=== PATIENT | female | born 1970 | race Caucasian/White ===

== ENCOUNTER 2017-12-20 10:27 | Inpatient (IN) ==
[2017-12-20] MEDS ORDERED: Sod Chloride 0.9% Inj 1,000 ML IV.SIG ONE (10:45)
[2017-12-20] MEDS ORDERED: Morphine Inj 4 MG/ML Vial IV.PUSH ONE (10:53)
--- NOTE | 2017-12-20 10:57 | ED ---
HPI General Chief Complaint: Abdominal Pain Stated Complaint: Stomach pain x 5 days Time Seen by Provider: 12/20/17 10:53 Source: patient Mode of arrival: ambulatory Limitations: no limitations History of Present Illness HPI narrative: 47-year-old female patient with recent history of diverticulitis diagnosed last week, has been on Cipro and Flagyl, presents to the ER today sent and by GI, Dr. Louis, who she saw this morning because of increased 2 days of abdominal pains. She has been nauseous, states that now she is having severe 10 out of 10 cramping which worsens with movement talking, and states that she is having watery dark diarrhea. She denies any recent fevers or other issues. I have talked to her GI physician and was asked to do further abdominal workup including CAT scan due to concerns about perforation. Related Data Home Medications Medication Instructions Recorded Confirmed Effexor XR 150 mg PO DAILY 12/20/17 12/20/17 ciprofloxacin HCl [Cipro] mg PO 12/20/17 metoprolol tartrate 25 mg PO BID 12/20/17 12/20/17 metronidazole [Flagyl] mg PO 12/20/17 omeprazole 20 mg PO DAILY 12/20/17 12/20/17 Allergies Allergy/AdvReac Type Severity Reaction Status Date / Time ondansetron [From Zofran] Allergy Hives Verified 12/20/17 10:53 topiramate AdvReac Severe MEMORY Verified 12/20/17 10:53 ISSUES trazodone AdvReac Intermediate Nausea/Vomi Verified 12/20/17 10:53 ting oxycodone AdvReac Mild ITCH Verified 12/20/17 11:18 Review of Systems Except as stated in HPI: all other systems reviewed are negative PMFSH History History Provided By: Patient Medical History Medical History Diverticulitis (Acute) SVT (supraventricular tachycardia) (Acute) Surgical History Surgical History H/O oophorectomy (Acute) History of cholecystectomy (Acute) History of prior ablation treatment (Acute) Social History Social History Substance History: No History of Abuse Second Hand Smoke Exposure: No Smoking Status: Never smoker How Often Do You Have a Drink Containing Alcohol: 2 to 4 times a month Recent Travel in [facility] within the Last 8 Weeks: No Recent Out of Country Travel within the Last 8 Weeks: No Exam Narrative Exam Narrative: GENERAL: Well-developed middle-age female patient currently in moderate distress. Awake and oriented 3. SKIN: Focused skin assessment warm/dry. HEAD: Atraumatic. Normocephalic. EYES: Pupils equal and round. No scleral icterus. No injection or drainage. ENT: No nasal bleeding or discharge. Mucous membranes pink and moist. NECK: Trachea midline. No JVD. CARDIOVASCULAR: Regular rate and rhythm. No murmur appreciated. RESPIRATORY: No accessory muscle use. Clear to auscultation. Breath sounds equal bilaterally. GASTROINTESTINAL: Abdomen diffuse tender, more pronounced in the left lower quadrant, guarding with no reboundly, nondistended. Hepatic and splenic margins not palpable. MUSCULOSKELETAL: No obvious deformities. No clubbing. No cyanosis. No edema. NEUROLOGICAL: Awake and alert. No obvious cranial nerve deficits. Motor grossly within normal limits. Normal speech. PSYCHIATRIC: Appropriate mood and affect; insight and judgment normal. Course Hospital Course: Patient's lab work was fairly unremarkable and CAT scan did not show any signs of acute processes other than the ongoing diverticulitis. There are no signs of perforation or any signs of abscess formation. Case was discussed with , who states that considering that the patient is not doing well in outpatient therapy, he would recommend that the patient receive IV antibiotics and inpatient evaluation and therapy with GI consult and medical admission. Case was then discussed with Dr. Ruvalcaba for admission. In addition, Dr. Ruvalcaba would like me to put her in for Zosyn and clindamycin. Initial Documented Vital Signs Temperature 98.6 F 12/20/17 10:54 Pulse Rate 120 H 12/20/17 10:54 Respiratory Rate 18 12/20/17 10:54 Blood Pressure 167/80 H 12/20/17 10:54 Pulse Oximetry 99 12/20/17 10:54 Last Documented Vital Signs Temperature 98.6 F 12/20/17 10:54 Pulse Rate 88 12/20/17 11:45 Respiratory Rate 20 12/20/17 11:45 Blood Pressure 156/82 H 12/20/17 11:45 Pulse Oximetry 96 12/20/17 11:45 Medical Decision Making Differential Diagnosis Differential Diagnosis: Worsening diverticulitis versus perforation versus diverticular abscess versus other acute intra-abdominal processes Lab Data Result diagrams: 12/20/17 11:00 12/20/17 11:00 Lab Results 0712/20/17 12/20/17 Range/Units 11:00 11:00 11:05 CBC w Diff Auto diff final WBC 11.2 H (4.0-11.0) th/mm3 RBC 5.32 H (4.00-5.30) mil/mm3 Hgb 13.6 (11.6-15.3) gm/dL Hct 42.5 (35.0-46.0) % MCV 79.9 L (80.0-100.0) fL MCH 25.6 L (27.0-34.0) pg MCHC 32.0 (32.0-36.0) % RDW 15.4 (11.6-17.2) % Plt Count 435 (150-450) th/mm3 MPV 7.9 (7.0-11.0) fL Neut % (Auto) 72.3 H (16.0-70.0) % Lymph % (Auto) 20.3 (9.0-44.0) % [place] % (Auto) 4.5 (0.0-8.0) % Eos % (Auto) 1.9 (0.0-4.0) % Baso % (Auto) 1.0 (0.0-2.0) % Neut # (Auto) 8.1 H (1.8-7.7) th/mm3 Lymph # (Auto) 2.3 (1.0-4.8) th/mm3 [place] # (Auto) 0.5 (0.0-0.9) th/mm3 Eos # (Auto) 0.2 (0.0-0.4) th/mm3 Baso # (Auto) 0.1 (0.0-0.2) th/mm3 WBC Differential . Differential Comment . Sodium 138 (136-145) meq/L Potassium 3.7 (3.5-5.1) meq/L Chloride 103 (98-107) meq/L Carbon Dioxide 25.7 (21.0-32.0) meq/L Anion Gap 9 (5-15) meq/L BUN 10 (7-18) mg/dL Creatinine 0.95 (0.50-1.00) mg/dL Estimated GFR 63 L (>89) mL/min Random Glucose 111 H (74-106) mg/dL Calcium 9.2 (8.5-10.1) mg/dL Total Bilirubin 0.3 (0.2-1.0) mg/dL AST 24 (15-37) U/L ALT 36 (10-53) U/L Alkaline Phosphatase 113 (45-117) U/L Total Protein 8.7 H (6.4-8.2) g/dL Albumin 3.8 (3.4-5.0) g/dL Lipase 165 (73-393) U/L Ur Collection Type Clean catch Urine Color Yellow (Yellw/Straw) Urine Clarity Clear (Clear) Urine pH 6.5 (5.0-8.5) Ur Specific [place] Greater/equal 1.030 (1.002-1.035) Urine Protein 30 H (Neg-Trace) mg/dL Urine Glucose (UA) Negative (Negative) mg/dL Urine Ketones Trace H (Negative) mg/dL Urine Occult Blood Negative (Negative) Urine Nitrate Negative (Negative) Urine Bilirubin Negative (Negative) Urine Urobilinogen 0.2 (Less than 2) mg/dL Ur Leukocyte Esterase Trace H (Negative) Urine RBC 0-3 (0-3) /hpf Urine WBC 9-20 H (0-5) /hpf Ur Squamous Epith Cells Greater than 10 H (0-5) /hpf Urine Bacteria Many H (None) /hpf Micro UA Comment Culture indicated Urine Culture Comments Culture indicated Imaging Data Radiologist's impression: ITS Impressions Abdomen/Pelvis CT 12/20/17 10:45 CONCLUSION: 1. Discharge Plan Discharge Disposition Patient Disposition: 30 Still Patient Discharge Condition Condition: Stable Discharge Details Anticipated Discharge Date: 12/20/17 Diagnosis: Diverticulitis Physicians Team ED Provider: Chin Gama Primary Care Provider: El Lion Rxs /Orders / Referrals /Forms Prescriptions: No Action metronidazole [Flagyl] 250 mg Tablet PO RF: 0 ciprofloxacin HCl [Cipro] 250 mg Tablet PO RF: 0 metoprolol tartrate 50 mg Tablet 25 mg PO BID RF: 0 omeprazole 20 mg Capsule,Delayed Release(Dr/Ec) 20 mg PO DAILY RF: 0 Effexor XR 150 mg PO DAILY RF: 0 Discharge Interventions Interventions: Vital Signs Last Done: 12/20/17 11:45 Status ED Status: With Doctor
[2017-12-20 11:03] LABS: Baso # (Auto) 0.1 th/mm3 (0.0-0.2); Eos # (Auto) 0.2 th/mm3 (0.0-0.4); Eos % (Auto) 1.9 % (0.0-4.0); Hematocrit 42.5 % (35.0-46.0); Hemoglobin 13.6 gm/dL (11.6-15.3); Lymph # (Auto) 2.3 th/mm3 (1.0-4.8); Lymph % (Auto) 20.3 % (9.0-44.0); Mean Corpuscular Hemoglobin 25.6 pg (27.0-34.0); Mean Corpuscular Volume 79.9 fL (80.0-100.0); Mean Platelet Volume 7.9 fL (7.0-11.0); Mono # (Auto) 0.5 th/mm3 (0.0-0.9); Mono % (Auto) 4.5 % (0.0-8.0); Neut # (Auto) 8.1 th/mm3 (1.8-7.7); Neut % (Auto) 72.3 % (16.0-70.0); Platelet Count 435 th/mm3 (150-450); Red Blood Count 5.32 mil/mm3 (4.00-5.30); Red Cell Distribution Width 15.4 % (11.6-17.2); White Blood Count 11.2 th/mm3 (4.0-11.0)
[2017-12-20 11:12] LABS: Clarity,Urine Clear (Clear); Color,Urine Yellow (Yellw/Straw); Glucose,Urine (UA) Negative (Negative); Leukocyte Esterase,Urine Trace (Negative); Nitrite,Urine Negative (Negative); PH,Urine 6.5 (5.0-8.5); Specific Gravity,Urine Greater/Equal 1.030 (1.002-1.035); Urobilinogen,Urine 0.2 mg/dL (Less than 2)
[2017-12-20 11:12] LABS: Chloride 103 meq/L (98-107); Potassium 3.7 meq/L (3.5-5.1); Sodium 138 meq/L (136-145)
[2017-12-20 11:15] LABS: Bilirubin,Urine Negative (Negative)
[2017-12-20 11:19] LABS: Albumin 3.8 g/dL (3.4-5.0); Anion Gap 9 meq/L (5-15); Blood Urea Nitrogen 10 mg/dL (7-18); Calcium 9.2 mg/dL (8.5-10.1); Carbon Dioxide 25.7 meq/L (21.0-32.0); Glucose,Random 111 mg/dL (74-106); Lipase 165 U/L (73-393)
[2017-12-20 11:21] LABS: Alanine Aminotransferase 36 U/L (10-53); Aspartate Aminotransferase 24 U/L (15-37)
[2017-12-20 11:22] LABS: RBC,Urine 0-3 /hpf (0-3); Squamous Epithelial Cell,Urine Greater than 10 /hpf (0-5)
[2017-12-20 11:22] LABS: Glomerular Filtration Rate 63 mL/min (>89)
[2017-12-20 11:23] LABS: Bacteria,Urine Many /hpf
[2017-12-20 11:23] LABS: Total Protein 8.7 g/dL (6.4-8.2)
[2017-12-20 11:24] LABS: Alkaline Phosphatase 113 U/L (45-117)
--- NOTE | 2017-12-20 12:56 | CT ---
EXAM DATE: 12/20/2017 12:53 PM EDT AGE/SEX: 47 years / Female INDICATIONS: Left lower quadrant abdominal pain. CLINICAL DATA: This is the patient's initial encounter. Patient reports that signs and symptoms have been present for 4 - 6 days and indicates a pain score of 10/10. MEDICAL/SURGICAL HISTORY: Diverticulitis. Hysterectomy. Cholecystectomy. ORAL CONTRAST: No oral contrast ingested. RADIATION DOSE: 16.92 CTDI (mGy) COMPARISON: No prior exams available for comparison. TECHNIQUE: Multiple contiguous axial images were obtained through the abdomen and pelvis following b olus infusion of 95 ml Omnipaque 350 (iohexol) nonionic water-soluble contrast as a single exam dos e. No oral contrast ingested. Using automated exposure control and adjustment of the mA and/or kV ac cording to patient size, radiation dose was kept as low as reasonably achievable to obtain optimal di agnostic quality images. DICOM format image data is available electronically for review and comparis on. FINDINGS: No CONCLUSION: 1. Electronically signed by: Sarath Miranda MD 12/20/2017 12:55 PM EDT
[2017-12-20] MEDS ORDERED: Dicyclomine Inj 20 MG/2 ML Ampul IM ONE (13:07)
[2017-12-20] MEDS ORDERED: Clindamycin 600 mg/NS Premix 600 MG/50 ML PIGGYBACK IV.SIG ONE (13:59)
[2017-12-20] MEDS ORDERED: Piperacil/Tazo 3.375 GM Premix 50 ML IV.SIG ONE (13:59)
[2017-12-20] MEDS: Piperacil/Tazo 3.375 GM Premix 50 ML IV.SIG SCH ×2 (14:13→21:01)
[2017-12-20] MEDS: Sod Chloride 0.9% Inj 1,000 ML IV.CONT SCH (14:23)
--- NOTE | 2017-12-20 14:43 | P.HP ---
History of Present Illness Service: [facility] Adult medicine Primary Care Physician: El Lion Chief Complaint: abd pain, diverticulitis- sent by GI provider History of Present Illness: 47-year-old female patient with recent history of diverticulitis diagnosed last week in ER in [facility], has been on Cipro and Flagyl for 6 days, presents to the ER today sent and by GI, Dr. Louis, who she saw this morning in his office because of increased abdominal pains over last 2-3 days despite c/w meds. She has been nauseous, states that now she is having severe 10 out of 10 cramping which worsens with movement talking, and states that she is having watery dark diarrhea for the last day. She denies any recent fevers or other issues. She reports that abd pain is primarily in LLQ and is crampy in nature. No hematemesis. NO CP or SOB. ER eval reveals uncomfortable female c/o abd pain. WBC slightly elevated around 11K. CT scan reveals diverticulitis in the deep central pelvis and mid to distal sigmoid colon without obstruction or definite abscess. Trace free fluid. No free air.Large left-sided hiatal hernia increased in size from 2011 comparison. Associated left basilar atelectasis. She has been started on IVF, IV abx, pain meds. She reports that morphine does dull the pain and make it bearable, but still having pain. - Diagnosis (1) Diverticulitis (2) GERD (gastroesophageal reflux disease) (3) Major depression (4) Anxiety (5) Migraine (6) SVT (supraventricular tachycardia) Inpatient Certification: I certify that the inpatient services were ordered in accordance with Medicare regulations governing the order. This includes certification that hospital inpatient services are reasonable and necessary and in the case of services not specified as inpatient-only under 42 CFR 419.22(n), that they are appropriately provided as inpatient services in accordance to with the 2-midnight benchmark under 43 CFR 412.3(e) Estimated Total Length of Stay (Days): 3 Plans for Post Hospital Care: Home Review of Systems Constitutional: Reports fatigue, Reports malaise, Reports weight loss Cardiovascular: Reports fast heart rate, Denies chest pain, Denies chest pain at rest, Denies chest pain with activity, Denies excessive sweating, Denies fainting, Denies foot swelling, Denies generalized swelling, Denies irregular heart rhythm, Denies leg pain with activity, Denies leg sores, Denies leg swelling, Denies lightheadedness, Denies radiating jaw, neck or arm pain, Denies rapid, pounding, or irregular heartbeat, Denies shortness of breath, Denies shortness of breath with activity, Denies shortness of breath when lying down, Denies shortness of breath causing sudden awakening, Denies slow heart rate, Denies other Respiratory: Denies change in phlegm color, Denies chest congestion, Denies cough, Denies coughing up blood, Denies excessive phlegm production, Denies pain on inspiration, Denies pain with cough, Denies shortness of breath, Denies shortness of breath with activity, Denies snoring, Denies stridor, Denies wheezing, Denies other Gastrointestinal: Reports abdominal pain, Reports bloating, Reports change in stools, Reports loose stools, Reports nausea Skin/Breast: Denies acne, Denies bleeding lesions, Denies boil, Denies breast swelling, Denies breast skin changes, Denies breast pain, Denies breast lump, Denies change in breast shape, Denies change in hair, Denies change in skin color, Denies changing lesions, Denies dry skin, Denies excessive hair growth, Denies hair loss, Denies itching, Denies lesions, Denies nail changes, Denies new lesions, Denies nipple discharge, Denies non-healing lesions, Denies redness , Denies sensitivity to light, Denies rash, Denies skin pain, Denies skin ulcer , Denies sores, Denies stretch inman, Denies unusual bruising, Denies wounds, Denies yellowing of the skin, Denies other Neurologic: Denies abnormal hearing, Denies abnormal movements, Denies abnormal speech, Denies abnormal walking, Denies behavioral changes, Denies burning sensations, Denies confusion, Denies dizziness, Denies fainting, Denies frequent falls, Denies headache(s), Denies lack of coordination, Denies localized weakness, Denies loss of vision, Denies memory loss, Denies numbness, Denies other visual disturbances, Denies radiating pain, Denies restless legs, Denies convulsions, Denies seizure-like activity, Denies sensory deficit, Denies tingling, Denies tingling/numbness/burning sensations, Denies tremor(s), Denies unsteadiness, Denies weakness, Denies other Psychiatric: Reports anxiety Hematologic/Lymphatic: Denies easy bleeding, Denies easy bruising, Denies enlarged lymph nodes, Denies other Allergic/Immunologic: Reports GI upset with certain foods PMFSH - History History Provided By: Patient - Medical History Medical History: Medical History (Last Updated 12/20/17 @ 14:36 by Ronn Ruvalcaba MD, PhD) Diverticulitis History of hysterectomy SVT (supraventricular tachycardia) - Surgical History Surgical History: Surgical History (Last Updated 12/20/17 @ 14:36 by Ronn Ruvalcaba MD, PhD) H/O cardiac radiofrequency ablation H/O oophorectomy History of cholecystectomy History of nasal surgery History of prior ablation treatment History of tonsillectomy and adenoidectomy Hx of abdominoplasty - Family History Family History: Family History (Last Updated 12/20/17 @ 14:37 by Ronn Ruvalcaba MD, PhD) Father Family history of hypertension Mother Depression Family history of hypertension - Tobacco History Second Hand Smoke Exposure: No Tobacco Use In Past 30 Days: No Smoking Status: Never smoker - Alcohol History How Often Do You Have a Drink Containing Alcohol: 2 to 4 times a month - Substance Use History Substance History: No History of Abuse - Travel History Recent Travel in the [place] Within the Last 8 Weeks: No Recent Travel Out of the Country Within the Last 8 Weeks: No - Immunization History Tetanus Immunization: >5 Years Hx Influenza Vaccine This Season: No Medications and Allergies Active Medications: Active Medications Sodium Chloride (Ns Inj) 1,000 mls @ 100 mls/hr IV.CONT .Q10H [facility] Last Admin: 12/20/17 14:23 Dose: 100 mls/hr Piperacillin/Tazobactam/Dextrose (Zosyn 3.375 Gm Premix) 50 mls @ 100 mls/hr IV.SIG Q6H [facility] Last Admin: 12/20/17 14:13 Dose: Not Given Morphine Sulfate (Morphine Inj) 4 mg IV.PUSH Q4H PRN PRN Reason: PAIN SCALE 6 TO 10 Prochlorperazine Edisylate (Compazine Inj) 5 mg IV.PUSH Q6H PRN PRN Reason: NAUSEA OR VOMITING Sodium Chloride (Ns Flush) 2 ml IV.FLUSH PRN PRN PRN Reason: FLUSH AFTER USING IV ACCESS Allergies Allergy/AdvReac Type Severity Reaction Status Date / Time ondansetron [From Zofran] Allergy Hives Verified 12/20/17 10:53 topiramate AdvReac Severe MEMORY Verified 12/20/17 10:53 ISSUES trazodone AdvReac Intermediate Nausea/Vomi Verified 12/20/17 10:53 ting oxycodone AdvReac Mild ITCH Verified 12/20/17 11:18 Home Medications Medication Instructions Recorded Confirmed Type Effexor XR 150 mg PO DAILY 12/20/17 12/20/17 History ciprofloxacin HCl [Cipro] mg PO 12/20/17 History metoprolol tartrate 25 mg PO BID 12/20/17 12/20/17 History metronidazole [Flagyl] mg PO 12/20/17 History omeprazole 20 mg PO BID 12/20/17 12/20/17 History Exam Vital signs: Vital Signs 12/20/17 10:54 12/20/17 11:15 12/20/17 11:45 Temperature 98.6 F Pulse Rate 120 H 88 Respiratory Rate 18 20 Blood Pressure 167/80 H 156/82 H Pulse Oximetry 99 97 96 12/20/17 14:07 Temperature 97.9 F Pulse Rate 78 Respiratory Rate 18 Blood Pressure 172/92 H Pulse Oximetry 100 Intake & Output 12/19/17 12/20/17 12/20/17 18:59 06:59 18:59 Intake Total 1000 / 1000 Balance 1000 / 1000 Weight 103.5 kg Intake: IV 1000 / 1000 NS Inj 1,000 ML @ Wide Open IV. 1000 / 1000 SIG BOLUS ONE Rx#:[id number] - Constitutional mild distress, obese, cooperative - Routine HEENT Exam Head: Present: normocephalic, atraumatic Eye: Present: EOMI, PERRL ENT: Present: mucous membranes moist, nares patent - Routine Neck Exam Present: supple, full ROM - Routine Respiratory Exam Present: CTA bilaterally - Routine Cardiovascular Exam Present: RRR - Routine Abdominal Exam Present: tenderness, distended, guarding - Routine Extremities Exam Present: full ROM, pulses intact, normal capillary refill - Routine Skin Exam Present: intact - Routine Neurological Exam Present: alert, oriented X3, CN II-XII intact, moving all extremities, normal tone, normal speech Results - Labs CBC & Chem 7: 12/20/17 11:00 12/20/17 11:00 Labs: Laboratory Results - last 24 hr 12/20/17 12/20/17 12/20/17 11:00 11:00 11:05 CBC w Diff Auto diff final WBC 11.2 H RBC 5.32 H Hgb 13.6 Hct 42.5 MCV 79.9 L MCH 25.6 L MCHC 32.0 RDW 15.4 Plt Count 435 MPV 7.9 Neut % (Auto) 72.3 H Lymph % (Auto) 20.3 [place] % (Auto) 4.5 Eos % (Auto) 1.9 Baso % (Auto) 1.0 Neut # (Auto) 8.1 H Lymph # (Auto) 2.3 [place] # (Auto) 0.5 Eos # (Auto) 0.2 Baso # (Auto) 0.1 WBC Differential . Differential Comment . Sodium 138 Potassium 3.7 Chloride 103 Carbon Dioxide 25.7 Anion Gap 9 BUN 10 Creatinine 0.95 Estimated GFR 63 L Random Glucose 111 H Calcium 9.2 Total Bilirubin 0.3 AST 24 ALT 36 Alkaline Phosphatase 113 Total Protein 8.7 H Albumin 3.8 Lipase 165 Ur Collection Type Clean catch Urine Color Yellow Urine Clarity Clear Urine pH 6.5 Ur Specific [place] Greater/equal 1.030 Urine Protein 30 H Urine Glucose (UA) Negative Urine Ketones Trace H Urine Occult Blood Negative Urine Nitrate Negative Urine Bilirubin Negative Urine Urobilinogen 0.2 Ur Leukocyte Esterase Trace H Urine RBC 0-3 Urine WBC 9-20 H Ur Squamous Epith Cells Greater than 10 H Urine Bacteria Many H Micro UA Comment Culture indicated Urine Culture Comments Culture indicated - Imaging Impressions Abdomen/Pelvis CT 12/20/17 10:45 CONCLUSION: 1. Caprini VTE Risk Assessment Caprini VTE Risk Assessment: No/Low Risk (score <= 1) Caprini Risk Assessment Model: Point Value = 1 Point Value = 2 Point Value = 3 Point Value = 5 Age 41-60 Minor surgery BMI > 25 kg/m2 Swollen legs Varicose veins or History of unexplained or recurrent spontaneous Oral contraceptives or hormone replacement Sepsis (< 1 month) Serious lung disease, including pneumonia (< 1 month) Abnormal pulmonary function Acute myocardial infarction Congestive heart failure (< 1 month) History of inflammatory bowel disease Medical patient at bed rest Age 61-74 Arthroscopic surgery Major open surgery (> 45 min) Laparoscopic surgery (> 45 min) Malignancy Confined to bed (> 72 hours) Immobilizing plaster cast Central venous access Age >= 75 History of VTE Family history of VTE Factor V Leiden Prothrombin 75055H Lupus anticoagulant Anticardiolipin antibodies Elevated serum homocysteine Heparin-induced thrombocytopenia Other congenital or acquired thrombophilia Stroke (< 1 month) Elective arthroplasty Hip, pelvis, or leg fracture Acute spinal cord injury (< 1 month) Prophylaxis Regimen: Total Risk Factor Score Risk Level Prophylaxis Regimen 0-1 Low Early ambulation 2 Moderate Order ONE of the following: *Sequential Compression Device (SCD) *Heparin 5000 units SQ BID 3-4 Higher Order ONE of the following medications: *Heparin 5000 units SQ TID *Enoxaparin/Lovenox 40 mg SQ daily (WT < 150 kg, CrCl > 30 mL/min) *Enoxaparin/Lovenox 30 mg SQ daily (WT < 150 kg, CrCl > 10-29 mL/min) *Enoxaparin/Lovenox 30 mg SQ BID (WT < 150 kg, CrCl > 30 mL/min) AND/OR *Sequential Compression Device (SCD) 5 or more Highest Order ONE of the following medications: *Heparin 5000 units SQ TID (Preferred with Epidurals) *Enoxaparin/Lovenox 40 mg SQ daily (WT < 150 kg, CrCl > 30 mL/min) *Enoxaparin/Lovenox 30 mg SQ daily (WT < 150 kg, CrCl > 10-29 mL/min) *Enoxaparin/Lovenox 30 mg SQ BID (WT < 150 kg, CrCl > 30 mL/min) AND *Sequential Compression Device (SCD) Assessment and Plan - Assessment (1) Diverticulitis Code(s): K57.92 - Diverticulitis of intestine, part unspecified, without perforation or abscess without bleeding Status: Acute Plan: failed outpt abx. will provide IV zosyn, IVF fluids, Pain control. Have GI see pt. will give 1 dose of solumedrol tonight to see if this helps alleviate pain. (2) GERD (gastroesophageal reflux disease) Code(s): K21.9 - Gastro-esophageal reflux disease without esophagitis Status: Chronic Plan: continue ppi (3) Major depression Code(s): F32.9 - Major depressive disorder, single episode, unspecified Status : Chronic Plan: continue rx (4) Anxiety Code(s): F41.9 - Anxiety disorder, unspecified Status: Chronic Plan: continue rx (5) Migraine Code(s): G43.909 - Migraine, unspecified, not intractable, without status migrainosus Status: Chronic (6) SVT (supraventricular tachycardia) Code(s): I47.1 - Supraventricular tachycardia Status: Resolved Plan: continue meds. Appears to be resolved or at least quite well controlled with BB - Plan admit to inpt as she failed outpt abx and needs IVF as well as IV pain meds currently to control pain Code Status: full Discussed Condition With: pt and ER provider Discharge Planning: hopefully d/c home in 2-3 days depending on her progress.
[2017-12-20] MEDS: Morphine Inj 4 MG/ML Vial IV.PUSH PRN ×2 (16:09→20:03)
[2017-12-20] MEDS ORDERED: MethylPREDNISolone Sod Succinate Inj 40 MG/ML Vial IV.PUSH ONE (18:14)
--- NOTE | 2017-12-20 19:03 | MB ---
cc: Darrell Jamil MD, Ammar MD DATE: 12/20/2017 REASON FOR REFERRAL: Severe abdominal pain. HISTORY OF PRESENT ILLNESS: Thank you for the consultation. This is a pleasant 47-year-old lady who has been in good health. The patient came to the [facility] on Monday with severe abdominal pain, diagnosed with diverticulitis, was given antibiotic orally, Cipro and Flagyl, and was sent home. The patient continued to do poorly with severe abdominal pain, so she was seen by Dr. Louis in the GI clinic and he referred her to the emergency room for admission and evaluation to make sure that there is no abscess or perforation. The patient stated that the pain got worse in the last 2 days with severe nausea, no vomiting. She had some diarrhea in the last 24 hours with significant cramping pain, 10/10, not related to food. She still feels discomfort and no rectal bleeding. PAST MEDICAL HISTORY: Significant for SVT and history of diverticulitis 2 years ago. PAST SURGICAL HISTORY: Significant for cholecystectomy, prior ablation for SVT. Oophorectomy. SOCIAL HISTORY: Negative for tobacco. She drinks very rarely, maybe a couple of times a month. No drugs. FAMILY HISTORY: Noncontributory. REVIEW OF SYSTEMS: All 12-point negative except for HPI. PHYSICAL EXAMINATION: GENERAL: Alert, oriented, in no acute distress. VITAL SIGNS: Stable. No fever at this time. HEENT: Pupils round, reactive to light. NECK: Supple. LUNGS: Clear to auscultation and percussion. CARDIAC: Regular rate and rhythm. No murmur or gallop except occasionally she has tachycardia. ABDOMEN: Soft, diffuse tenderness, mostly in the left lower quadrant with some rebound. No hepatosplenomegaly. Mildly obese. MUSCULOSKELETAL: Negative. No focal deficit. NEUROLOGIC: Alert and oriented. PSYCHOLOGICAL: Appropriate. SKIN: Clear. LABORATORY DATA: White count 11.2, hemoglobin 13.6, platelet 435. Chemistry normal. Lipase 165. IMAGING STUDIES: CT scan showed mild fatty liver, diverticulitis in the distal sigmoid without obstruction or definite abscess. Some fluid, no free air. Left-sided large hiatal hernia, increased in size in comparison to the previous exam. ASSESSMENT AND PLAN: A 47-year-old lady with acute diverticulitis who failed outpatient therapy with antibiotics, significant pain, worsening since she was seen in the emergency room at [facility]. The patient will need to be admitted for IV antibiotics and observation. If she does not improve or she develops perforation or abscess, she will need possible drainage or surgical intervention. We will keep the patient n.p.o. for now. We will give her pain medication and we will follow up with you. MD MELODY Gardiner/ , 06:42 PM , 07:01 PM
[2017-12-20] MEDS: Metoprolol Tartrate 50 MG Tablet PO SCH (21:09)
[2017-12-20] MEDS: Acetaminophen 325 MG Tablet PO PRN (21:50)
[2017-12-21] MEDS: Morphine Inj 4 MG/ML Vial IV.PUSH PRN ×4 (00:30→21:38)
[2017-12-21] MEDS: Piperacil/Tazo 3.375 GM Premix 50 ML IV.SIG SCH ×4 (04:46→21:31)
[2017-12-21] MEDS: Sod Chloride 0.9% Inj 1,000 ML IV.CONT SCH (04:50)
[2017-12-21] MEDS: Acetaminophen 325 MG Tablet PO PRN ×2 (06:40→16:38)
--- NOTE | 2017-12-21 07:06 | P.PN ---
Subjective Interval history: Still with some nausea and left lower quadrant pain. Pain is about the same per patient report. She has tolerated water intake orally without difficulty. Physical Exam Vital signs: Vital Signs 12/20/17 10:54 12/20/17 11:15 12/20/17 11:45 Temperature 98.6 F Pulse Rate 120 H 88 Respiratory Rate 18 20 Blood Pressure 167/80 H 156/82 H Pulse Oximetry 99 97 96 12/20/17 14:00 12/20/17 14:07 12/20/17 16:15 Temperature 97.9 F Pulse Rate 78 85 Respiratory Rate 18 16 Blood Pressure 172/92 H 157/96 H Pulse Oximetry 100 100 100 12/20/17 23:33 12/21/17 02:29 Temperature 97.5 F L 96.7 F L Pulse Rate 87 74 Respiratory Rate 16 20 Blood Pressure 139/84 117/70 Pulse Oximetry 99 96 Intake & Output 12/20/17 12/21/17 12/21/17 18:59 06:59 18:59 Intake Total 1100 / 1100 1670 / 1670 Balance 1100 / 1100 1670 / 1670 Weight 103.5 kg 103.5 kg Intake: IV 1100 / 1100 1050 / 1050 NS Inj 1,000 ML @ 100 mls/hr IV 1000 / 1000 .CONT .Q10H DIONISIO Rx#:[id number] Cleocin 600 mg/NS Premix 600 mg 50 / 50 In 50 ml @ 100 mls/hr IV.SIG ONCE ONE Rx#:[id number] Zosyn 3.375 GM Premix 50 ML @ 50 / 50 50 / 50 100 mls/hr IV.SIG Q6H DIONISIO Rx#: [id number] NS Inj 1,000 ML @ Wide Open IV. 1000 / 1000 SIG BOLUS ONE Rx#:[id number] Oral 200 / 200 Oral Supplement 420 / 420 Other: # Voids 2 Date of Last Bowel Movement 12/20/17 Narrative: GENERAL: Awake and alert. Cooperative. No acute distress. SKIN: Warm and dry. HEAD: Normocephalic. EYES: No scleral icterus. No injection or drainage. NECK: Supple, trachea midline. No JVD or lymphadenopathy. CARDIOVASCULAR: Regular rate and rhythm without murmurs, gallops, or rubs. RESPIRATORY: Breath sounds equal bilaterally. No accessory muscle use. GASTROINTESTINAL: Abdomen mildly distended, bowel sounds normal, tenderness to palpation globally but more so in left lower quadrant. Positive voluntary guarding. No rebound. MUSCULOSKELETAL: No cyanosis, or edema. BACK: No CVA tenderness. Results - Labs CBC & Chem 7: 12/20/17 11:00 12/20/17 11:00 Laboratory Results - last 24 hr 12/20/17 12/20/17 12/20/17 11:00 11:00 11:05 CBC w Diff Auto diff final WBC 11.2 H RBC 5.32 H Hgb 13.6 Hct 42.5 MCV 79.9 L MCH 25.6 L MCHC 32.0 RDW 15.4 Plt Count 435 MPV 7.9 Neut % (Auto) 72.3 H Lymph % (Auto) 20.3 [place] % (Auto) 4.5 Eos % (Auto) 1.9 Baso % (Auto) 1.0 Neut # (Auto) 8.1 H Lymph # (Auto) 2.3 [place] # (Auto) 0.5 Eos # (Auto) 0.2 Baso # (Auto) 0.1 WBC Differential . Differential Comment . Sodium 138 Potassium 3.7 Chloride 103 Carbon Dioxide 25.7 Anion Gap 9 BUN 10 Creatinine 0.95 Estimated GFR 63 L Random Glucose 111 H Calcium 9.2 Total Bilirubin 0.3 AST 24 ALT 36 Alkaline Phosphatase 113 Total Protein 8.7 H Albumin 3.8 Lipase 165 Ur Collection Type Clean catch Urine Color Yellow Urine Clarity Clear Urine pH 6.5 Ur Specific [place] Greater/equal 1.030 Urine Protein 30 H Urine Glucose (UA) Negative Urine Ketones Trace H Urine Occult Blood Negative Urine Nitrate Negative Urine Bilirubin Negative Urine Urobilinogen 0.2 Ur Leukocyte Esterase Trace H Urine RBC 0-3 Urine WBC 9-20 H Ur Squamous Epith Cells Greater than 10 H Urine Bacteria Many H Micro UA Comment Culture indicated Urine Culture Comments Culture indicated - Imaging Impressions Abdomen/Pelvis CT 12/20/17 10:45 CONCLUSION: 1. Assessment and Plan - Assessment (1) Diverticulitis Code(s): K57.92 - Diverticulitis of intestine, part unspecified, without perforation or abscess without bleeding Status: Acute Plan: failed outpt abx. will provide IV zosyn, IVF fluids, Pain control. GI has evaluated the patient. Continue current therapy. Try 1 dose of IV Toradol. (2) GERD (gastroesophageal reflux disease) Code(s): K21.9 - Gastro-esophageal reflux disease without esophagitis Status: Chronic Plan: continue ppi (3) Major depression Code(s): F32.9 - Major depressive disorder, single episode, unspecified Status : Chronic Plan: continue rx (4) Anxiety Code(s): F41.9 - Anxiety disorder, unspecified Status: Chronic Plan: continue rx (5) Migraine Code(s): G43.909 - Migraine, unspecified, not intractable, without status migrainosus Status: Chronic - Plan admit to inpt as she failed outpt abx and needs IVF as well as IV pain meds currently to control pain Discharge Planning: hopefully d/c home in 2-3 days depending on her progress.
[2017-12-21] MEDS ORDERED: Ketorolac Inj 30 MG/ML (IVP) Vial IV.PUSH ONE (07:07)
[2017-12-21] MEDS: Metoprolol Tartrate 50 MG Tablet PO SCH ×2 (08:44→21:30)
[2017-12-21] MEDS: Venlafaxine XR 75 MG Capsule PO SCH (08:44)
--- NOTE | 2017-12-21 18:38 | P.PNGI ---
Subjective Interval history: Patient feels slightly better, less abdominal pain, still using morphine overcome her discomfort, still having significant diarrhea Physical Exam Vital signs: Vital Signs 12/20/17 23:33 12/21/17 02:29 12/21/17 07:32 Temperature 97.5 F L 96.7 F L 96.5 F L Pulse Rate 87 74 76 Respiratory Rate 16 20 20 Blood Pressure 139/84 117/70 131/80 Pulse Oximetry 99 96 98 12/21/17 08:00 12/21/17 11:19 12/21/17 15:05 Temperature 96.6 F L 97.3 F L Pulse Rate 66 81 Respiratory Rate 20 20 Blood Pressure 115/71 124/68 Pulse Oximetry 98 100 99 Intake & Output 12/20/17 12/21/17 12/21/17 18:59 06:59 18:59 Intake Total 1100 / 1100 1720 / 1720 770 / 770 Balance 1100 / 1100 1720 / 1720 770 / 770 Weight 103.5 kg 103.5 kg Intake: IV 1100 / 1100 1100 / 1100 50 / 50 NS Inj 1,000 ML @ 100 mls/hr IV 1000 / 1000 .CONT .Q10H DIONISIO Rx#:[id number] Cleocin 600 mg/NS Premix 600 mg 50 / 50 In 50 ml @ 100 mls/hr IV.SIG ONCE ONE Rx#:[id number] Zosyn 3.375 GM Premix 50 ML @ 50 / 50 100 / 100 50 / 50 100 mls/hr IV.SIG Q6H DIONISIO Rx#: [id number] NS Inj 1,000 ML @ Wide Open IV. 1000 / 1000 SIG BOLUS ONE Rx#:[id number] Oral 200 / 200 720 / 720 Oral Supplement 420 / 420 Other: # Voids 2 4 Date of Last Bowel Movement 12/20/17 12/20/17 # Bowel Movements 3 - Constitutional no acute distress - Routine HEENT Exam Head: Present: normocephalic Eye: Present: EOMI - Routine Neck Exam Present: supple - Routine Respiratory Exam Present: CTA bilaterally - Routine Cardiovascular Exam Present: RRR - Routine Abdominal Exam Present: soft, tenderness (In the left lower quadrant, positive bowel sounds) - Routine Extremities Exam Present: normal capillary refill Results - Labs CBC & Chem 7: 12/20/17 11:00 12/20/17 11:00 Microbiology 12/20/17 11:05 Clean Catch Urine Urine Culture - Final 50-100,000 cfu/mL mixed gram positive lucila (probable contaminants) Assessment and Plan - Plan Patient is 47-year-old lady with acute diverticulitis, did not respond to oral antibiotic as an outpatient, patient will need a colonoscopy in 4-5 weeks, continue IV antibiotic, ongoing to check stool for C. difficile since she is having significant diarrhea
[2017-12-22] MEDS: Piperacil/Tazo 3.375 GM Premix 50 ML IV.SIG SCH ×4 (02:21→19:31)
[2017-12-22] MEDS: Morphine Inj 4 MG/ML Vial IV.PUSH PRN ×4 (02:21→19:32)
[2017-12-22] MEDS: Acetaminophen 325 MG Tablet PO PRN ×4 (02:22→21:11)
[2017-12-22 06:09] LABS: Hematocrit 33.5 % (35.0-46.0); Hemoglobin 11.3 gm/dL (11.6-15.3); Mean Corpuscular HGB Conc 33.7 % (32.0-36.0); Mean Corpuscular Hemoglobin 26.6 pg (27.0-34.0); Mean Platelet Volume 8.8 fL (7.0-11.0); Platelet Count 299 th/mm3 (150-450); Red Blood Count 4.25 mil/mm3 (4.00-5.30); Red Cell Distribution Width 15.5 % (11.6-17.2); White Blood Count 10.4 th/mm3 (4.0-11.0)
[2017-12-22] MEDS ORDERED: Ketorolac Inj 30 MG/ML (IVP) Vial IV.PUSH ONE (06:42)
--- NOTE | 2017-12-22 06:42 | P.PN ---
Subjective Interval history: Diarrhea resumed yesterday around noon. She denies any blood in stool. She does note multiple loose stools yesterday and some throughout the night. Is having good urine output. Still nauseated but no vomiting. Tolerating clear liquid. Does not want to advance the diet at this point she feels somewhat nauseated still. Physical Exam Vital signs: Vital Signs 12/21/17 07:32 12/21/17 08:00 12/21/17 11:19 Temperature 96.5 F L 96.6 F L Pulse Rate 76 66 Respiratory Rate 20 20 Blood Pressure 131/80 115/71 Pulse Oximetry 98 98 100 12/21/17 15:05 12/21/17 21:34 12/22/17 01:28 Temperature 97.3 F L 96.8 F L 97.0 F L Pulse Rate 81 84 77 Respiratory Rate 20 16 16 Blood Pressure 124/68 137/83 139/74 Pulse Oximetry 99 98 98 Intake & Output 12/21/17 12/21/17 12/22/17 06:59 18:59 06:59 Intake Total 1720 / 1720 820 / 820 250 / 250 Balance 1720 / 1720 820 / 820 250 / 250 Weight 103.5 kg 103.5 kg Intake: IV 1100 / 1100 100 / 100 50 / 50 NS Inj 1,000 ML @ 100 mls/hr IV 1000 / 1000 .CONT .Q10H DIONISIO Rx#:[id number] Zosyn 3.375 GM Premix 50 ML @ 100 / 100 100 / 100 50 / 50 100 mls/hr IV.SIG Q6H DIONISIO Rx#: [id number] Oral 200 / 200 720 / 720 200 / 200 Oral Supplement 420 / 420 Other: # Voids 2 4 3 Date of Last Bowel Movement 12/20/17 12/20/17 12/20/17 # Bowel Movements 3 Narrative: GENERAL: Sleeping, arouses to voice. Alert and oriented. Cooperative. No acute distress. SKIN: Warm and dry. HEAD: Normocephalic. EYES: No scleral icterus. No injection or drainage. NECK: Supple, trachea midline. No JVD or lymphadenopathy. CARDIOVASCULAR: Regular rate and rhythm without murmurs, gallops, or rubs. RESPIRATORY: Breath sounds equal bilaterally. No accessory muscle use. GASTROINTESTINAL: Abdomen mildly distended, but softer than previous exams. Bowel sounds normal, tenderness to palpation globally but more so in left lower quadrant. Less guarding than previous exam. No rebound. MUSCULOSKELETAL: No cyanosis, or edema. BACK: No CVA tenderness. Results - Labs CBC & Chem 7: 12/22/17 05:07 12/20/17 11:00 Laboratory Results - last 24 hr 12/22/17 05:07 WBC 10.4 RBC 4.25 Hgb 11.3 L D Hct 33.5 L MCV 79.0 L MCH 26.6 L MCHC 33.7 RDW 15.5 Plt Count 299 D MPV 8.8 Microbiology 12/20/17 11:05 Clean Catch Urine Urine Culture - Final 50-100,000 cfu/mL mixed gram positive lucila (probable contaminants) Assessment and Plan - Assessment (1) Diverticulitis Code(s): K57.92 - Diverticulitis of intestine, part unspecified, without perforation or abscess without bleeding Status: Acute Plan: failed outpt abx. will provide IV zosyn, IVF fluids, Pain control. GI has evaluated the patient. Continue current therapy. Toradol seemed to help yesterday. We will give another dose today. Will need likely a couple more days of IV antibiotics. She is improving slowly. White count normalized. Diarrhea has recurred and C. difficile ordered. (2) GERD (gastroesophageal reflux disease) Code(s): K21.9 - Gastro-esophageal reflux disease without esophagitis Status: Chronic Plan: continue ppi (3) Major depression Code(s): F32.9 - Major depressive disorder, single episode, unspecified Status : Chronic Plan: continue rx. Overall doing well. (4) Anxiety Code(s): F41.9 - Anxiety disorder, unspecified Status: Chronic Plan: continue rx (5) Migraine Code(s): G43.909 - Migraine, unspecified, not intractable, without status migrainosus Status: Chronic - Plan Discharge Planning: hopefully d/c home in 2-3 days depending on her progress.
[2017-12-22] MEDS: Enoxaparin Inj 40 MG/0.4 ML Syringe SQ SCH (08:37)
[2017-12-22] MEDS: Venlafaxine XR 75 MG Capsule PO SCH (08:42)
[2017-12-22] MEDS: Metoprolol Tartrate 50 MG Tablet PO SCH ×2 (08:47→21:11)
[2017-12-22] MEDS: Sod Chloride 0.9% Inj 1,000 ML IV.CONT SCH (08:52)
--- NOTE | 2017-12-22 17:56 | P.PNGI ---
Subjective Interval history: Patient laying in bed, still having some abdominal discomfort but says that it is improving but still needing pain medication, she is also still having diarrhea stools for C. difficile was sent today Physical Exam Vital signs: Vital Signs 12/21/17 21:34 12/22/17 01:28 12/22/17 08:00 Temperature 96.8 F L 97.0 F L 96.3 F L Pulse Rate 84 77 85 Respiratory Rate 16 16 18 Blood Pressure 137/83 139/74 139/84 Pulse Oximetry 98 98 96 12/22/17 09:00 12/22/17 09:15 12/22/17 09:21 Temperature Pulse Rate Respiratory Rate 18 18 18 Blood Pressure Pulse Oximetry 12/22/17 12:00 12/22/17 13:00 12/22/17 15:58 Temperature 96.3 F L 96.0 F L Pulse Rate 79 80 Respiratory Rate 18 18 18 Blood Pressure 125/79 135/88 Pulse Oximetry 97 98 12/22/17 16:00 Temperature Pulse Rate Respiratory Rate 18 Blood Pressure Pulse Oximetry Intake & Output 12/21/17 12/22/17 12/22/17 18:59 06:59 18:59 Intake Total 820 / 820 300 / 300 1550 / 1550 Balance 820 / 820 300 / 300 1550 / 1550 Weight 103.5 kg Intake: IV 100 / 100 100 / 100 1550 / 1550 NS Inj 1,000 ML @ 100 mls/hr IV 1500 / 1500 .CONT .Q10H DIONISIO Rx#:[id number] Zosyn 3.375 GM Premix 50 ML @ 100 / 100 100 / 100 50 / 50 100 mls/hr IV.SIG Q6H DIONISIO Rx#: [id number] Oral 720 / 720 200 / 200 Other: # Voids 4 3 Date of Last Bowel Movement 12/20/17 12/20/17 12/21/17 # Bowel Movements 3 - Constitutional no acute distress - Routine HEENT Exam Head: Present: normocephalic, atraumatic Eye: Present: EOMI, PERRL ENT: Present: mucous membranes moist - Routine Neck Exam Present: supple, full ROM - Routine Respiratory Exam Comments: Normal respiratory exam - Routine Cardiovascular Exam Present: RRR (No murmurs or gallops) - Routine Abdominal Exam Present: soft, tenderness (Diffusely but mostly in the left lower quadrant, positive bowel sounds, no ascites) - Routine Skin Exam Present: intact Results - Labs CBC & Chem 7: 12/22/17 05:07 12/20/17 11:00 Laboratory Results - last 24 hr 12/22/17 05:07 WBC 10.4 RBC 4.25 Hgb 11.3 L D Hct 33.5 L MCV 79.0 L MCH 26.6 L MCHC 33.7 RDW 15.5 Plt Count 299 D MPV 8.8 Assessment and Plan - Attending Attestation Patient has diverticulitis, failed oral antibiotic as an outpatient, brought to the hospital for IV antibiotic, no abscess on CT scan, patient started having significant diarrhea so stool for C. difficile was sent to rule out C. difficile colitis next continue IV antibiotics Continue pain management
[2017-12-23] MEDS: Piperacil/Tazo 3.375 GM Premix 50 ML IV.SIG SCH ×4 (03:05→21:55)
[2017-12-23] MEDS: Sod Chloride 0.9% Inj 1,000 ML IV.CONT SCH (03:05)
[2017-12-23] MEDS: Enoxaparin Inj 40 MG/0.4 ML Syringe SQ SCH (08:49)
[2017-12-23] MEDS: Acetaminophen 325 MG Tablet PO PRN ×3 (08:50→21:56)
[2017-12-23] MEDS: Venlafaxine XR 75 MG Capsule PO SCH (08:51)
[2017-12-23] MEDS: Metoprolol Tartrate 50 MG Tablet PO SCH ×2 (08:51→20:52)
[2017-12-23] MEDS: Morphine Inj 4 MG/ML Vial IV.PUSH PRN ×4 (08:53→21:54)
--- NOTE | 2017-12-23 12:33 | P.PN ---
Subjective Interval history: Patient still with some abdominal pain and tolerating full liquids will advance diet if goes well home tomorrow ,she had some loose stools and c diff was ordered and was negative. Physical Exam Vital signs: Vital Signs 12/22/17 13:00 12/22/17 15:58 12/22/17 16:00 Temperature 96.0 F L Pulse Rate 80 Respiratory Rate 18 18 18 Blood Pressure 135/88 Pulse Oximetry 98 12/22/17 20:00 12/23/17 00:00 12/23/17 08:00 Temperature 97.1 F L 97.3 F L 98.1 F Pulse Rate 93 H 72 73 Respiratory Rate 20 20 20 Blood Pressure 148/85 H 140/81 167/86 H Pulse Oximetry 98 97 99 12/23/17 11:47 Temperature 97.4 F L Pulse Rate 62 Respiratory Rate Blood Pressure 134/80 Pulse Oximetry 98 Intake & Output 12/22/17 12/23/17 12/23/17 18:59 06:59 18:59 Intake Total 2750 / 2750 580 / 580 Balance 2750 / 2750 580 / 580 Weight 103.8 kg Intake: IV 1550 / 1550 100 / 100 NS Inj 1,000 ML @ 100 mls/hr IV 1500 / 1500 .CONT .Q10H DIONISIO Rx#:[id number] Zosyn 3.375 GM Premix 50 ML @ 50 / 50 100 / 100 100 mls/hr IV.SIG Q6H DIONISIO Rx#: [id number] Oral 1200 / 1200 480 / 480 Other: # Voids 5 3 Date of Last Bowel Movement 12/21/17 12/21/17 12/23/17 # Bowel Movements 2 0 Narrative: GENERAL: Sleeping, arouses to voice. Alert and oriented. Cooperative. No acute distress. SKIN: Warm and dry. HEAD: Normocephalic. EYES: No scleral icterus. No injection or drainage. NECK: Supple, trachea midline. No JVD or lymphadenopathy. CARDIOVASCULAR: Regular rate and rhythm without murmurs, gallops, or rubs. RESPIRATORY: Breath sounds equal bilaterally. No accessory muscle use. GASTROINTESTINAL: Abdomen mildly distended, but softer than previous exams. Bowel sounds normal, tenderness to palpation globally but more so in left lower quadrant. Less guarding than previous exam. No rebound. MUSCULOSKELETAL: No cyanosis, or edema. BACK: No CVA tenderness. Results - Labs CBC & Chem 7: 12/22/17 05:07 12/20/17 11:00 Laboratory Results - last 24 hr 12/22/17 12:35 Stl C.difficile Tox PCR Negative St C. diff Tox Epid 027 Negative Assessment and Plan - Assessment (1) Diverticulitis Code(s): K57.92 - Diverticulitis of intestine, part unspecified, without perforation or abscess without bleeding Status: Acute Plan: failed outpt abx. will provide IV zosyn, IVF fluids, Pain control. GI has evaluated the patient. Continue current therapy. Toradol seemed to help yesterday. We will give another dose today. Will need likely a couple more days of IV antibiotics. She is improving slowly. White count normalized. Diarrhea has recurred and today better . C Diff was negative. Will advance diet to regular as tolerated. (2) GERD (gastroesophageal reflux disease) Code(s): K21.9 - Gastro-esophageal reflux disease without esophagitis Status: Chronic Plan: continue ppi (3) Major depression Code(s): F32.9 - Major depressive disorder, single episode, unspecified Status : Chronic Plan: continue rx. Overall doing well. (4) Anxiety Code(s): F41.9 - Anxiety disorder, unspecified Status: Chronic Plan: continue rx (5) Migraine Code(s): G43.909 - Migraine, unspecified, not intractable, without status migrainosus Status: Chronic - Plan advance diet possible discharge tomorrow
[2017-12-24] MEDS: Piperacil/Tazo 3.375 GM Premix 50 ML IV.SIG SCH ×4 (03:09→21:32)
[2017-12-24] MEDS: Morphine Inj 4 MG/ML Vial IV.PUSH PRN ×5 (03:40→21:38)
[2017-12-24] MEDS: Acetaminophen 325 MG Tablet PO PRN ×2 (03:40→12:38)
[2017-12-24 07:00] LABS: Baso # (Auto) 0.1 th/mm3 (0.0-0.2); Baso % (Auto) 0.8 % (0.0-2.0); Eos # (Auto) 0.3 th/mm3 (0.0-0.4); Eos % (Auto) 4.1 % (0.0-4.0); Hematocrit 36.2 % (35.0-46.0); Hemoglobin 11.5 gm/dL (11.6-15.3); Lymph # (Auto) 1.8 th/mm3 (1.0-4.8); Lymph % (Auto) 28.2 % (9.0-44.0); Mean Corpuscular HGB Conc 31.7 % (32.0-36.0); Mean Corpuscular Hemoglobin 25.8 pg (27.0-34.0); Mean Corpuscular Volume 81.2 fL (80.0-100.0); Mean Platelet Volume 8.5 fL (7.0-11.0); Mono # (Auto) 0.4 th/mm3 (0.0-0.9); Mono % (Auto) 6.1 % (0.0-8.0); Neut # (Auto) 3.7 th/mm3 (1.8-7.7); Neut % (Auto) 60.8 % (16.0-70.0); Platelet Count 299 th/mm3 (150-450); Red Blood Count 4.47 mil/mm3 (4.00-5.30); Red Cell Distribution Width 15.2 % (11.6-17.2); White Blood Count 6.3 th/mm3 (4.0-11.0)
[2017-12-24 07:07] LABS: Potassium 3.5 meq/L (3.5-5.1)
[2017-12-24 07:10] LABS: Calcium 8.4 mg/dL (8.5-10.1)
[2017-12-24 07:11] LABS: Carbon Dioxide 25.3 meq/L (21.0-32.0)
[2017-12-24] MEDS: Metoprolol Tartrate 50 MG Tablet PO SCH ×2 (08:11→21:32)
[2017-12-24] MEDS: Enoxaparin Inj 40 MG/0.4 ML Syringe SQ SCH (08:12)
[2017-12-24] MEDS: Venlafaxine XR 75 MG Capsule PO SCH (08:12)
--- NOTE | 2017-12-24 12:02 | P.PN ---
Subjective Interval history: Patient had bad day yesterday with abdominal pain and nausea no vomit ,labs stable but will have GI see today Physical Exam Vital signs: Vital Signs 12/23/17 11:47 12/23/17 17:05 12/23/17 17:42 Temperature 97.4 F L Pulse Rate 62 Respiratory Rate 20 20 Blood Pressure 134/80 Pulse Oximetry 98 12/23/17 20:00 12/24/17 00:00 12/24/17 07:51 Temperature 96.7 F L 97 F L 96.4 F L Pulse Rate 79 68 75 Respiratory Rate 20 20 20 Blood Pressure 165/89 H 149/78 H 137/74 Pulse Oximetry 100 94 L 97 12/24/17 11:19 Temperature 96.6 F L Pulse Rate 72 Respiratory Rate 20 Blood Pressure 132/70 Pulse Oximetry 97 Intake & Output 12/23/17 12/24/17 12/24/17 18:59 06:59 18:59 Intake Total 1178 / 1178 580 / 580 Balance 1178 / 1178 580 / 580 Weight 103.5 kg Intake: IV 100 / 100 100 / 100 Zosyn 3.375 GM Premix 50 ML @ 100 / 100 100 / 100 100 mls/hr IV.SIG Q6H DIONISIO Rx#: [id number] Oral 1078 / 1078 480 / 480 Other: # Voids 7 3 Date of Last Bowel Movement 12/23/17 12/23/17 # Bowel Movements 7 3 Narrative: GENERAL: SKIN: Warm and dry. HEAD: Normocephalic. EYES: No scleral icterus. No injection or drainage. NECK: Supple, trachea midline. No JVD or lymphadenopathy. CARDIOVASCULAR: Regular rate and rhythm without murmurs, gallops, or rubs. RESPIRATORY: Breath sounds equal bilaterally. No accessory muscle use. GASTROINTESTINAL: Abdomen more tender slightly distended MUSCULOSKELETAL: No cyanosis, or edema. BACK: Nontender without obvious deformity. No CVA tenderness. Results - Labs CBC & Chem 7: 12/24/17 06:14 12/24/17 06:14 Laboratory Results - last 24 hr 12/24/17 12/24/17 06:14 06:14 CBC w Diff Auto diff final WBC 6.3 RBC 4.47 Hgb 11.5 L Hct 36.2 MCV 81.2 MCH 25.8 L MCHC 31.7 L RDW 15.2 Plt Count 299 MPV 8.5 Neut % (Auto) 60.8 Lymph % (Auto) 28.2 [place] % (Auto) 6.1 Eos % (Auto) 4.1 H Baso % (Auto) 0.8 Neut # (Auto) 3.7 Lymph # (Auto) 1.8 [place] # (Auto) 0.4 Eos # (Auto) 0.3 Baso # (Auto) 0.1 WBC Differential . Differential Comment . Sodium 142 Potassium 3.5 Chloride 108 H Carbon Dioxide 25.3 Anion Gap 9 BUN 4 L Creatinine 0.70 Estimated GFR 89 Random Glucose 94 Calcium 8.4 L Assessment and Plan - Assessment (1) Diverticulitis Code(s): K57.92 - Diverticulitis of intestine, part unspecified, without perforation or abscess without bleeding Status: Acute Plan: failed outpt abx. will provide IV zosyn, IVF fluids, Pain control. GI has evaluated the patient. Continue current therapy. Toradol seemed to help yesterday. We will give another dose today. Will need likely a couple more days of IV antibiotics. She is improving slowly. White count normalized. Diarrhea has recurred and today better . C Diff was negative. Did have increase in abdominal pain will have gi to see today (2) GERD (gastroesophageal reflux disease) Code(s): K21.9 - Gastro-esophageal reflux disease without esophagitis Status: Chronic Plan: continue ppi (3) Major depression Code(s): F32.9 - Major depressive disorder, single episode, unspecified Status : Chronic Plan: continue rx. Overall doing well. (4) Anxiety Code(s): F41.9 - Anxiety disorder, unspecified Status: Chronic Plan: continue rx (5) Migraine Code(s): G43.909 - Migraine, unspecified, not intractable, without status migrainosus Status: Chronic - Plan was unable to tolerate diet with increase in symptoms will have gi see
[2017-12-24] MEDS: Sod Chloride 0.9% Inj 1,000 ML IV.CONT SCH ×4 (12:41→21:33)
[2017-12-25] MEDS: Piperacil/Tazo 3.375 GM Premix 50 ML IV.SIG SCH ×4 (01:56→20:39)
[2017-12-25] MEDS: Morphine Inj 4 MG/ML Vial IV.PUSH PRN ×4 (04:55→20:37)
[2017-12-25] MEDS: Sod Chloride 0.9% Inj 1,000 ML IV.CONT SCH ×2 (08:24→14:15)
[2017-12-25] MEDS: Metoprolol Tartrate 50 MG Tablet PO SCH ×2 (08:26→20:40)
[2017-12-25] MEDS: Enoxaparin Inj 40 MG/0.4 ML Syringe SQ SCH (08:27)
[2017-12-25] MEDS: Venlafaxine XR 75 MG Capsule PO SCH (08:27)
[2017-12-25] MEDS: Acetaminophen 325 MG Tablet PO PRN (08:33)
--- NOTE | 2017-12-25 09:59 | P.PN ---
Subjective Interval history: Patient with continued abdominal pain which is helped by morphine ,had to hold on food and go back to liquids ,GI did see patient last night and suggested back on liquids await input today. Physical Exam Vital signs: Vital Signs 12/24/17 11:19 12/24/17 16:08 12/24/17 17:06 Temperature 96.6 F L 96.7 F L Pulse Rate 72 79 Respiratory Rate 20 20 16 Blood Pressure 132/70 134/80 Pulse Oximetry 97 96 12/24/17 20:00 12/25/17 00:00 12/25/17 08:00 Temperature 97.7 F 97.7 F 98.3 F Pulse Rate 67 71 77 Respiratory Rate 16 16 16 Blood Pressure 171/88 H 140/83 148/82 H Pulse Oximetry 97 94 L 98 Intake & Output 12/24/17 12/25/17 12/25/17 18:59 06:59 18:59 Intake Total 940 / 940 1050 / 1050 1050 / 1050 Balance 940 / 940 1050 / 1050 1050 / 1050 Intake: IV 100 / 100 1050 / 1050 1050 / 1050 NS Inj 1,000 ML @ 100 mls/hr IV 1000 / 1000 1000 / 1000 .CONT .Q10H [facility] Rx#:[id number] Zosyn 3.375 GM Premix 50 ML @ 100 / 100 50 / 50 50 / 50 100 mls/hr IV.SIG Q6H [facility] Rx#: [id number] Oral 840 / 840 Other: # Voids 4 Date of Last Bowel Movement 12/24/17 # Bowel Movements 3 Narrative: GENERAL: SKIN: Warm and dry. HEAD: Normocephalic. EYES: No scleral icterus. No injection or drainage. NECK: Supple, trachea midline. No JVD or lymphadenopathy. CARDIOVASCULAR: Regular rate and rhythm without murmurs, gallops, or rubs. RESPIRATORY: Breath sounds equal bilaterally. No accessory muscle use. GASTROINTESTINAL: Abdomen hard rt side some distension no rebound MUSCULOSKELETAL: No cyanosis, or edema. BACK: Nontender without obvious deformity. No CVA tenderness. Results - Labs CBC & Chem 7: 12/24/17 06:14 12/24/17 06:14 Assessment and Plan - Assessment (1) Diverticulitis Code(s): K57.92 - Diverticulitis of intestine, part unspecified, without perforation or abscess without bleeding Status: Acute Plan: failed outpt abx. will provide IV zosyn, IVF fluids, Pain control. GI has evaluated the patient. Continue current therapy. Toradol seemed to help yesterday. We will give another dose today. Will need likely a couple more days of IV antibiotics. She is improving slowly. White count normalized. Diarrhea has recurred and today better . C Diff was negative. Did have increase in abdominal pain will have gi to see today (2) GERD (gastroesophageal reflux disease) Code(s): K21.9 - Gastro-esophageal reflux disease without esophagitis Status: Chronic Plan: continue ppi (3) Major depression Code(s): F32.9 - Major depressive disorder, single episode, unspecified Status : Chronic Plan: continue rx. Overall doing well. (4) Anxiety Code(s): F41.9 - Anxiety disorder, unspecified Status: Chronic Plan: continue rx (5) Migraine Code(s): G43.909 - Migraine, unspecified, not intractable, without status migrainosus Status: Chronic - Plan was unable to tolerate diet with increase in symptoms will have gi see restart liquids
[2017-12-25 11:58] LABS: Chloride 106 meq/L (98-107); Potassium 3.3 meq/L (3.5-5.1); Sodium 141 meq/L (136-145)
[2017-12-25 12:03] LABS: Albumin 2.8 g/dL (3.4-5.0); Anion Gap 9 meq/L (5-15); Blood Urea Nitrogen 2 mg/dL (7-18); Carbon Dioxide 25.7 meq/L (21.0-32.0); Glucose,Random 108 mg/dL (74-106)
[2017-12-25 12:06] LABS: Alanine Aminotransferase 43 U/L (10-53); Aspartate Aminotransferase 35 U/L (15-37); Glomerular Filtration Rate Greater Than 89 mL/min (>89)
[2017-12-25 12:08] LABS: Total Protein 6.5 g/dL (6.4-8.2)
[2017-12-25 12:09] LABS: Alkaline Phosphatase 83 U/L (45-117)
[2017-12-25] MEDS ORDERED: Diatrizoate Meglum/Diatrizoate Sod Liq 9 ML UDC PO ONE (16:15)
--- NOTE | 2017-12-25 17:20 | P.PNGI ---
Subjective Interval history: Complaining of bloating, abdominal pain.States pain was on left side on admission, now moved to right .Crampy in nature, loose stools.States she had diverticulitis in the past, never had colonoscopy.Awaiting repeat ct abdomen/ pelvis Physical Exam Vital signs: Vital Signs 12/24/17 20:00 12/25/17 00:00 12/25/17 08:00 Temperature 97.7 F 97.7 F 98.3 F Pulse Rate 67 71 77 Respiratory Rate 16 16 16 Blood Pressure 171/88 H 140/83 148/82 H Pulse Oximetry 97 94 L 98 12/25/17 12:00 12/25/17 15:57 Temperature 97.6 F 97.0 F L Pulse Rate 73 69 Respiratory Rate 16 16 Blood Pressure 144/83 H 173/79 H Pulse Oximetry 99 98 Intake & Output 12/24/17 12/25/17 12/25/17 18:59 06:59 18:59 Intake Total 940 / 940 1050 / 1050 2100 / 2100 Balance 940 / 940 1050 / 1050 2100 / 2100 Intake: IV 100 / 100 1050 / 1050 2100 / 2100 NS Inj 1,000 ML @ 100 mls/hr IV 1000 / 1000 2000 / 2000 .CONT .Q10H [facility] Rx#:[id number] Zosyn 3.375 GM Premix 50 ML @ 100 / 100 50 / 50 100 / 100 100 mls/hr IV.SIG Q6H [facility] Rx#: [id number] Oral 840 / 840 Other: # Voids 4 Date of Last Bowel Movement 12/24/17 # Bowel Movements 3 - Constitutional no acute distress - Routine HEENT Exam Head: Present: normocephalic Eye: Present: PERRL ENT: Present: mucous membranes moist - Routine Neck Exam Present: supple - Routine Respiratory Exam Comments: normal - Routine Cardiovascular Exam Present: S1, S2 - Routine Abdominal Exam Present: soft Comments: distended, obese, tenderness llq, epigastrium - Routine Skin Exam Present: intact - Routine Neurological Exam Present: alert, oriented X3 - Routine Psychiatric Exam Present: normal affect Results - Labs CBC & Chem 7: 12/24/17 06:14 12/25/17 11:30 Laboratory Results - last 24 hr 12/25/17 11:30 Sodium 141 Potassium 3.3 L Chloride 106 Carbon Dioxide 25.7 Anion Gap 9 BUN 2 L Creatinine 0.69 Estimated GFR Greater than 89 Random Glucose 108 H Calcium 8.0 L Total Bilirubin 0.3 AST 35 ALT 43 Alkaline Phosphatase 83 Total Protein 6.5 D Albumin 2.8 L Assessment and Plan - Attending Attestation Recurrent diverticulitis -clinically not improving much abdominal pain secondary diverticulitis-on pain medications -not well controlled diarrhea secondary diverticulitis nausea, vomiting secondary diverticulitis Recommendations repeat ct abdomen/pelvis continue iv antibiotics ivf fu stool studies if no improvement clinically and radiologic-surgical consult colonoscopy in 8-12 weeks
--- NOTE | 2017-12-25 19:00 | CT ---
EXAM DATE: 12/25/2017 6:39 PM EDT AGE/SEX: 47 years / Female INDICATIONS: Diverticulitis recently diagnosed five days ago. Failed outpatient therapy. CLINICAL DATA: This is the patient's subsequent encounter. Patient reports that signs and symptoms h ave been present for 4 - 6 days and indicates a pain score of 5/10. MEDICAL/SURGICAL HISTORY: Diverticulitis. SVT. Hysterectomy. Cholecystectomy. Cardiac ablatio n. ORAL CONTRAST: Prescribed oral contrast ingested. RADIATION DOSE: 20.88 CTDI (mGy) COMPARISON: [facility], CT ABDOMEN & PELVIS W CONTRAST, 12/20/2017. . TECHNIQUE: Multiple contiguous axial images were obtained through the abdomen and pelvis following b olus infusion of 95 ml Omnipaque 350 (iohexol) nonionic water-soluble contrast as a single exam dos e. Prescribed oral contrast ingested. Using automated exposure control and adjustment of the mA and/ or kV according to patient size, radiation dose was kept as low as reasonably achievable to obtain op timal diagnostic quality images. DICOM format image data is available electronically for review and comparison. FINDINGS: Lower Lungs: The visualized lower lungs are clear. Interval development of bilateral pleural effusion s, right greater than left with right pleural effusion measuring 3 cm. Stable configuration to the hi atus hernia with intrathoracic stomach and adjacent left lower lobe consolidation.. Liver: The liver has a homogeneous density without space-occupying lesion. There is no dilation of th e biliary tree. Cholecystectomy Spleen: Homogeneous density without enlargement. Pancreas: Unremarkable without mass or calcification. Kidneys: Normal in size and shape. No evidence of mass or hydronephrosis. Adrenal Glands: Unremarkable. Aorta: The aorta and proximal iliac vessels are grossly unremarkable without aneurysmal dilation. Bowel/Mesentery: No dilated loops of small or large bowel. Oral contrast passes through to the right colon. There is some minimal induration of the fat adjacent to the mid sigmoid colon, improved in ap pearance when compared to 12/20/2017. No evidence of free fluid. Abdominal Wall: Several focal collections of gas in the subcutaneous fat of the right lower quadrant without surrounding edema. Retroperitoneum: No evidence of adenopathy in the retrocrural, para-aortic, or deep pelvic regions. Bladder: Contours are smooth. Reproductive Organs: No abnormal masses or calcifications seen. Inguinal: The inguinal region is unremarkable without evidence of adenopathy. Bony Structures: Unremarkable. CONCLUSION: 1. Decrease in amount of induration of the fat about the mid sigmoid colon compared to 12/20/2017. No evidence of free fluid. 2. Interval development of bilateral pleural effusions, right greater than left. Electronically signed by: Howie Bernstein MD 12/25/2017 6:59 PM EDT
[2017-12-25] MEDS: Loperamide 2 MG Capsule PO PRN (22:08)
[2017-12-26] MEDS: Piperacil/Tazo 3.375 GM Premix 50 ML IV.SIG SCH ×4 (02:31→21:32)
[2017-12-26] MEDS: Morphine Inj 4 MG/ML Vial IV.PUSH PRN ×5 (02:32→22:46)
[2017-12-26] MEDS: Acetaminophen 325 MG Tablet PO PRN ×3 (07:40→23:01)
[2017-12-26] MEDS: Venlafaxine XR 75 MG Capsule PO SCH (08:10)
[2017-12-26] MEDS: Enoxaparin Inj 40 MG/0.4 ML Syringe SQ SCH (08:11)
[2017-12-26] MEDS: Metoprolol Tartrate 50 MG Tablet PO SCH ×2 (08:13→21:03)
[2017-12-26] MEDS: Loperamide 2 MG Capsule PO PRN (08:19)
--- NOTE | 2017-12-26 08:47 | XR ---
EXAM DATE: 12/26/2017 8:04 AM EDT AGE/SEX: 47 years / Female INDICATIONS: Wheezing. CLINICAL DATA: This is the patient's subsequent encounter. Patient reports that signs and symptoms h ave been present for 3 days and indicates a pain score of 0/10. MEDICAL/SURGICAL HISTORY: . Diverticulitis. SVT. Hysterectomy. Cholecystectomy. . Cardiac abl ation. COMPARISON: [facility], CT ABDOMEN & PELVIS W CONTRAST, 12/25/2017. . FINDINGS: Bilateral decubitus views of the chest demonstrate a a small layering right-sided pleural effusion. T here is a very trace left-sided pleural effusion as well. No significant pneumothorax. Minimal bibasi lar linear parenchymal opacities likely reflecting atelectasis. Cardiomegaly mediastinal contours are within normal limits. Bony thorax is intact. CONCLUSION: 1. Small free-flowing right-sided pleural effusion. 2. Trace left-sided pleural effusion. 3. Minimal bibasilar atelectasis. Electronically signed by: Frederick Rodriguez MD 12/26/2017 8:46 AM EDT
--- NOTE | 2017-12-26 08:51 | XR ---
EXAM DATE: 12/26/2017 8:02 AM EDT AGE/SEX: 47 years / Female INDICATIONS: . Wheezing. CLINICAL DATA: This is the patient's subsequent encounter. Patient reports that signs and symptoms h ave been present for 3 days and indicates a pain score of 0/10. MEDICAL/SURGICAL HISTORY: . Diverticulitis. SVT. Hysterectomy. Cholecystectomy. . Cardiac ab lation COMPARISON: [facility], CT ABDOMEN & PELVIS W CONTRAST, 12/25/2017. . FINDINGS: PA and lateral views of the chest demonstrate airspace consolidation in the left lower lobe. There is also subtle blunting of the posterior costophrenic angles likely reflecting small pleural effusions. Cardiomediastinal contours are within normal limits. Redemonstration of elevation of large hiatal he rnia. Bony thorax is intact. CONCLUSION: 1. Large hiatal hernia with persistent left lower lobe airspace consolidation which may reflect atel ectasis. Differential considerations include pneumonia and aspiration in the appropriate clinical set ting. 2. Small bilateral pleural effusions, right greater than left. Electronically signed by: Frederick Rodriguez MD 12/26/2017 8:50 AM EDT
--- NOTE | 2017-12-26 11:04 | P.PN ---
Subjective Interval history: Patient still has diarrhea and still unable to tolerate solids ,CT shows no acute changes ,it did show pleural effusions and i gave her lasix IV 20mg ,no SOB cxr and decubitus views show small effusion i stopped her IV fluid ,i will add probiotic today,will ask GI for any further input may need to ask surgery to see patient. Physical Exam Vital signs: Vital Signs 12/25/17 12:00 12/25/17 15:57 12/25/17 20:00 Temperature 97.6 F 97.0 F L Pulse Rate 73 69 Respiratory Rate 16 16 16 Blood Pressure 144/83 H 173/79 H Pulse Oximetry 99 98 12/25/17 22:42 12/26/17 01:53 12/26/17 08:00 Temperature 97.1 F L 98.3 F 97.2 F L Pulse Rate 93 H 76 74 Respiratory Rate 16 16 22 Blood Pressure 155/77 H 114/56 L 158/84 H Pulse Oximetry 99 97 96 12/26/17 09:10 Temperature Pulse Rate Respiratory Rate 18 Blood Pressure Pulse Oximetry Intake & Output 12/25/17 12/26/17 12/26/17 18:59 06:59 18:59 Intake Total 2820 / 2820 970 / 970 290 / 290 Output Total 1500 / 1500 Balance 2820 / 2820 -530 / -530 290 / 290 Weight 103.5 kg Intake: IV 2100 / 2100 770 / 770 50 / 50 NS Inj 1,000 ML @ 100 mls/hr IV 2000 / 2000 620 / 620 .CONT .Q10H [facility] Rx#:[id number] Zosyn 3.375 GM Premix 50 ML @ 100 / 100 150 / 150 50 / 50 100 mls/hr IV.SIG Q6H [facility] Rx#: [id number] Oral 720 / 720 200 / 200 240 / 240 Output: Urine 1500 / 1500 Other: # Voids 5 4 Date of Last Bowel Movement 12/26/17 # Bowel Movements 4 17 Narrative: GENERAL: SKIN: Warm and dry. HEAD: Normocephalic. EYES: No scleral icterus. No injection or drainage. NECK: Supple, trachea midline. No JVD or lymphadenopathy. CARDIOVASCULAR: Regular rate and rhythm without murmurs, gallops, or rubs. RESPIRATORY: Breath sounds equal bilaterally. No accessory muscle use. GASTROINTESTINAL: Abdomen mild tender mild distension no rebound. MUSCULOSKELETAL: No cyanosis, or edema. BACK: Nontender without obvious deformity. No CVA tenderness. Results - Labs CBC & Chem 7: 12/24/17 06:14 12/25/17 11:30 Laboratory Results - last 24 hr 12/25/17 11:30 Sodium 141 Potassium 3.3 L Chloride 106 Carbon Dioxide 25.7 Anion Gap 9 BUN 2 L Creatinine 0.69 Estimated GFR Greater than 89 Random Glucose 108 H Calcium 8.0 L Total Bilirubin 0.3 AST 35 ALT 43 Alkaline Phosphatase 83 Total Protein 6.5 D Albumin 2.8 L - Imaging Impressions Abdomen/Pelvis CT 12/25/17 00:00 CONCLUSION: 1. Decrease in amount of induration of the fat about the mid sigmoid colon compared to 12/20/2017. No evidence of free fluid. 2. Interval development of bilateral pleural effusions, right greater than left. Chest X-Ray 12/26/17 00:00 CONCLUSION: 1. Small free-flowing right-sided pleural effusion. 2. Trace left-sided pleural effusion. 3. Minimal bibasilar atelectasis. Chest X-Ray 12/26/17 00:00 CONCLUSION: 1. Large hiatal hernia with persistent left lower lobe airspace consolidation which may reflect atelectasis. Differential considerations include pneumonia and aspiration in the appropriate clinical setting. 2. Small bilateral pleural effusions, right greater than left. Assessment and Plan - Assessment (1) Diverticulitis Code(s): K57.92 - Diverticulitis of intestine, part unspecified, without perforation or abscess without bleeding Status: Acute Plan: failed outpt abx. will provide IV zosyn, IVF fluids, Pain control. GI has evaluated the patient. Continue current therapy. Toradol seemed to help yesterday. We will give another dose today. Will need likely a couple more days of IV antibiotics. She is improving slowly. White count normalized. Diarrhea has recurred . . C Diff was negative. Did have increase in abdominal pain CT showed stable abdomen with pleural effusion mild . I will add probiotic,discuss with GI. (2) GERD (gastroesophageal reflux disease) Code(s): K21.9 - Gastro-esophageal reflux disease without esophagitis Status: Chronic Plan: continue ppi (3) Major depression Code(s): F32.9 - Major depressive disorder, single episode, unspecified Status : Chronic Plan: continue rx. Overall doing well. (4) Anxiety Code(s): F41.9 - Anxiety disorder, unspecified Status: Chronic Plan: continue rx (5) Migraine Code(s): G43.909 - Migraine, unspecified, not intractable, without status migrainosus Status: Chronic (6) Pleural effusion Code(s): J90 - Pleural effusion, not elsewhere classified Status: Acute Plan: Chest XRAY and Decubitus views show small effusions and i did give lasix 20mg , no symptoms may be related to patient being in bed and receiving IV fluid - Plan was unable to tolerate diet with increase in symptoms will have gi see restart liquids
[2017-12-26] MEDS: Lactobacillus Acidophilus/L. Spores Tablet PO SCH ×2 (13:39→18:36)
--- NOTE | 2017-12-26 17:43 | US ---
EXAM DATE: 12/26/2017 5:36 PM EDT AGE/SEX: 47 years / Female INDICATIONS: Abdominal pain. CLINICAL DATA: This is the patient's initial encounter. Patient reports that signs and symptoms have been present for 1 month and indicates a pain score of 2/10. MEDICAL/SURGICAL HISTORY: . Diverticulitis. SVT. Hysterectomy. Cholecystectomy. Tonsillectom y. Cardiac ablation. Oophorectomy. Nasal surgery. Adenoidectomy. Abdominoplasty. COMPARISON: No prior exams available for comparison. MEASUREMENTS: Liver:__ 15.5 cm. Common Bile Duct:___ 9mm. Right Kidney:___10.3 x 4.2 x 4.8 cm. Left Kidney:___11.1 x 4.2 x 5.7 cm. Spleen:___9.9 cm. FINDINGS: Liver: Normal echotexture without focal lesion or ductal dilatation. Portal Vein: Hepatopedal flow seen in portal vein. Common Duct: No intraluminal mass or stone visualized. Gallbladder: Surgically absent. Pancreas: Not well visualized. Right Kidney: Normal echotexture and cortical thickness. No mass or hydronephrosis. Left Kidney: Normal echotexture and cortical thickness. No mass or hydronephrosis. Ascites: None Pleural Effusion: Right Spleen: No focal lesion. Aorta: Non aneurysmal. IVC: Within normal limits Other: Small right pleural effusion is present. CONCLUSION: 1. Right pleural effusion otherwise unremarkable. Electronically signed by: Julio Arguello MD 12/26/2017 5:42 PM EDT
--- NOTE | 2017-12-26 18:55 | P.PNGI ---
Subjective Interval history: Nausea, loose stools after eating .Bloating, abdominal pain better.Repeat ct noted . Started probiotics .US abdomen pending otherwise stable Physical Exam Vital signs: Vital Signs 12/25/17 20:00 12/25/17 22:42 12/26/17 01:53 Temperature 97.1 F L 98.3 F Pulse Rate 93 H 76 Respiratory Rate 16 16 16 Blood Pressure 155/77 H 114/56 L Pulse Oximetry 99 97 12/26/17 08:00 12/26/17 09:10 12/26/17 12:00 Temperature 97.2 F L 98.6 F Pulse Rate 74 67 Respiratory Rate 22 18 19 Blood Pressure 158/84 H 151/84 H Pulse Oximetry 96 97 12/26/17 14:20 12/26/17 15:36 12/26/17 16:00 Temperature 98.7 F Pulse Rate 61 Respiratory Rate 18 18 20 Blood Pressure 172/84 H Pulse Oximetry 97 Intake & Output 12/25/17 12/26/17 12/26/17 18:59 06:59 18:59 Intake Total 2820 / 2820 970 / 970 340 / 340 Output Total 1500 / 1500 Balance 2820 / 2820 -530 / -530 340 / 340 Weight 103.5 kg Intake: IV 2100 / 2100 770 / 770 100 / 100 NS Inj 1,000 ML @ 100 mls/hr IV 2000 / 2000 620 / 620 .CONT .Q10H [facility] Rx#:[id number] Zosyn 3.375 GM Premix 50 ML @ 100 / 100 150 / 150 100 / 100 100 mls/hr IV.SIG Q6H [facility] Rx#: [id number] Oral 720 / 720 200 / 200 240 / 240 Output: Urine 1500 / 1500 Other: # Voids 5 4 Date of Last Bowel Movement 12/26/17 # Bowel Movements 4 17 - Constitutional no acute distress - Routine HEENT Exam Head: Present: normocephalic ENT: Present: mucous membranes moist - Routine Neck Exam Present: supple - Routine Abdominal Exam Present: soft Comments: distended , generalized tenderness - Routine Skin Exam Present: intact - Routine Neurological Exam Present: alert, oriented X3 - Routine Psychiatric Exam Present: normal affect Results - Labs CBC & Chem 7: 12/27/17 05:37 12/27/17 05:37 - Imaging Impressions Abdomen/Pelvis CT 12/25/17 00:00 CONCLUSION: 1. Decrease in amount of induration of the fat about the mid sigmoid colon compared to 12/20/2017. No evidence of free fluid. 2. Interval development of bilateral pleural effusions, right greater than left. Abdomen Ultrasound 12/26/17 00:00 CONCLUSION: 1. Right pleural effusion otherwise unremarkable. Chest X-Ray 12/26/17 00:00 CONCLUSION: 1. Small free-flowing right-sided pleural effusion. 2. Trace left-sided pleural effusion. 3. Minimal bibasilar atelectasis. Chest X-Ray 12/26/17 00:00 CONCLUSION: 1. Large hiatal hernia with persistent left lower lobe airspace consolidation which may reflect atelectasis. Differential considerations include pneumonia and aspiration in the appropriate clinical setting. 2. Small bilateral pleural effusions, right greater than left. Assessment and Plan - Attending Attestation recurrent diverticulitis -minimal improvement nausea Diarrhea -stool studies negative abdominal pain secondary the above Recommendations advance diet to soft stool c diff trial of Bentyl 20 mg po tid fu general surgery eval colon in 6-8 weeks zofran prn Results - Impressions ITS Impressions Abdomen/Pelvis CT 12/25/17 00:00 CONCLUSION: 1. Decrease in amount of induration of the fat about the mid sigmoid colon compared to 12/20/2017. No evidence of free fluid. 2. Interval development of bilateral pleural effusions, right greater than left. Abdomen Ultrasound 12/26/17 00:00 CONCLUSION: 1. Right pleural effusion otherwise unremarkable. Chest X-Ray 12/26/17 00:00 CONCLUSION: 1. Large hiatal hernia with persistent left lower lobe airspace consolidation which may reflect atelectasis. Differential considerations include pneumonia and aspiration in the appropriate clinical setting. 2. Small bilateral pleural effusions, right greater than left.
[2017-12-27] MEDS: Morphine Inj 4 MG/ML Vial IV.PUSH PRN ×2 (03:00→08:25)
[2017-12-27] MEDS: Piperacil/Tazo 3.375 GM Premix 50 ML IV.SIG SCH ×2 (03:01→08:27)
[2017-12-27] MEDS: Loperamide 2 MG Capsule PO PRN ×2 (03:07→08:35)
[2017-12-27 06:02] LABS: Baso # (Auto) 0.1 th/mm3 (0.0-0.2); Baso % (Auto) 0.7 % (0.0-2.0); Eos # (Auto) 0.3 th/mm3 (0.0-0.4); Eos % (Auto) 3.3 % (0.0-4.0); Hematocrit 34.5 % (35.0-46.0); Lymph # (Auto) 1.9 th/mm3 (1.0-4.8); Lymph % (Auto) 20.5 % (9.0-44.0); Mean Corpuscular Hemoglobin 25.5 pg (27.0-34.0); Mean Corpuscular Volume 79.9 fL (80.0-100.0); Mean Platelet Volume 7.8 fL (7.0-11.0); Mono # (Auto) 0.7 th/mm3 (0.0-0.9); Mono % (Auto) 7.7 % (0.0-8.0); Neut # (Auto) 6.2 th/mm3 (1.8-7.7); Neut % (Auto) 67.8 % (16.0-70.0); Platelet Count 331 th/mm3 (150-450); Red Blood Count 4.32 mil/mm3 (4.00-5.30); Red Cell Distribution Width 15.5 % (11.6-17.2); White Blood Count 9.2 th/mm3 (4.0-11.0)
[2017-12-27 06:09] LABS: Chloride 104 meq/L (98-107); Potassium 3.7 meq/L (3.5-5.1); Sodium 140 meq/L (136-145)
[2017-12-27 06:14] LABS: Albumin 2.9 g/dL (3.4-5.0); Anion Gap 7 meq/L (5-15); Calcium 8.3 mg/dL (8.5-10.1); Carbon Dioxide 29.1 meq/L (21.0-32.0); Glucose,Random 102 mg/dL (74-106)
[2017-12-27 06:15] LABS: Blood Urea Nitrogen 5 mg/dL (7-18)
[2017-12-27 06:17] LABS: Alanine Aminotransferase 49 U/L (10-53); Aspartate Aminotransferase 37 U/L (15-37)
[2017-12-27 06:18] LABS: Glomerular Filtration Rate Greater Than 89 mL/min (>89)
[2017-12-27 06:19] LABS: Total Protein 6.9 g/dL (6.4-8.2)
[2017-12-27 06:20] LABS: Alkaline Phosphatase 82 U/L (45-117)
[2017-12-27] MEDS: Metoprolol Tartrate 50 MG Tablet PO SCH (08:21)
[2017-12-27] MEDS: Venlafaxine XR 75 MG Capsule PO SCH (08:22)
[2017-12-27] MEDS: Enoxaparin Inj 40 MG/0.4 ML Syringe SQ SCH (08:29)
[2017-12-27] MEDS: Lactobacillus Acidophilus/L. Spores Tablet PO SCH ×2 (10:16→12:18)
--- NOTE | 2017-12-27 11:35 | P.PN ---
Subjective Interval history: Patient still having loose stool but overall a little better ,GI added Millie to her Meds will see how she progresses today and i feel can be discharged today and have follow up with GI ,surgery was consulted ,but on review of CT and labs i do not see need for surgical intervention. Physical Exam Vital signs: Vital Signs 12/26/17 12:00 12/26/17 14:20 12/26/17 15:36 Temperature 98.6 F Pulse Rate 67 Respiratory Rate 19 18 18 Blood Pressure 151/84 H Pulse Oximetry 97 12/26/17 16:00 12/26/17 19:00 12/26/17 20:00 Temperature 98.7 F 97.4 F L Pulse Rate 61 72 Respiratory Rate 20 18 16 Blood Pressure 172/84 H 177/86 H Pulse Oximetry 97 95 12/27/17 00:00 12/27/17 08:00 12/27/17 08:25 Temperature 97.8 F 97.1 F L Pulse Rate 72 69 Respiratory Rate 16 18 18 Blood Pressure 143/81 H 144/79 H Pulse Oximetry 96 96 Intake & Output 12/26/17 12/27/17 12/27/17 18:59 06:59 18:59 Intake Total 340 / 340 150 / 150 50 / 50 Output Total 750 / 750 Balance -410 / -410 150 / 150 50 / 50 Weight 103.5 kg Intake: IV 100 / 100 150 / 150 50 / 50 Zosyn 3.375 GM Premix 50 ML @ 100 / 100 150 / 150 50 / 50 100 mls/hr IV.SIG Q6H DIONISIO Rx#: [id number] Oral 240 / 240 Output: Urine 750 / 750 Other: # Voids 3 Date of Last Bowel Movement 12/26/17 Narrative: GENERAL: SKIN: Warm and dry. HEAD: Normocephalic. EYES: No scleral icterus. No injection or drainage. NECK: Supple, trachea midline. No JVD or lymphadenopathy. CARDIOVASCULAR: Regular rate and rhythm without murmurs, gallops, or rubs. RESPIRATORY: Breath sounds equal bilaterally. No accessory muscle use. GASTROINTESTINAL: Abdomen soft, non-tender, nondistended. MUSCULOSKELETAL: No cyanosis, or edema. BACK: Nontender without obvious deformity. No CVA tenderness. Results - Labs CBC & Chem 7: 12/27/17 05:37 12/27/17 05:37 Laboratory Results - last 24 hr 12/27/17 12/27/17 05:37 05:37 CBC w Diff Auto diff final WBC 9.2 RBC 4.32 Hgb 11.0 L Hct 34.5 L MCV 79.9 L MCH 25.5 L MCHC 32.0 RDW 15.5 Plt Count 331 MPV 7.8 Neut % (Auto) 67.8 Lymph % (Auto) 20.5 [place] % (Auto) 7.7 Eos % (Auto) 3.3 Baso % (Auto) 0.7 Neut # (Auto) 6.2 Lymph # (Auto) 1.9 [place] # (Auto) 0.7 Eos # (Auto) 0.3 Baso # (Auto) 0.1 WBC Differential . Differential Comment . Sodium 140 Potassium 3.7 Chloride 104 Carbon Dioxide 29.1 Anion Gap 7 BUN 5 L Creatinine 0.69 Estimated GFR Greater than 89 Random Glucose 102 Calcium 8.3 L Total Bilirubin 0.4 AST 37 ALT 49 Alkaline Phosphatase 82 Total Protein 6.9 Albumin 2.9 L - Imaging Impressions Abdomen Ultrasound 12/26/17 00:00 CONCLUSION: 1. Right pleural effusion otherwise unremarkable. Assessment and Plan - Assessment (1) Diverticulitis Code(s): K57.92 - Diverticulitis of intestine, part unspecified, without perforation or abscess without bleeding Status: Acute Plan: failed outpt abx. will provide IV zosyn, IVF fluids, Pain control. GI has evaluated the patient. Continue current therapy. Toradol seemed to help yesterday. We will give another dose today. Will need likely a couple more days of IV antibiotics. She is improving slowly. White count normalized. Diarrhea has recurred . . C Diff was negative. Did have increase in abdominal pain CT showed stable abdomen with pleural effusion mild . I will add probiotic,and GI added millie will see how she feels later today possible discharge this evening. Abdominal ultrasound rt pleural effusion small (2) GERD (gastroesophageal reflux disease) Code(s): K21.9 - Gastro-esophageal reflux disease without esophagitis Status: Chronic Plan: continue ppi (3) Major depression Code(s): F32.9 - Major depressive disorder, single episode, unspecified Status : Chronic Plan: continue rx. Overall doing well. (4) Anxiety Code(s): F41.9 - Anxiety disorder, unspecified Status: Chronic Plan: continue rx (5) Migraine Code(s): G43.909 - Migraine, unspecified, not intractable, without status migrainosus Status: Chronic (6) Pleural effusion Code(s): J90 - Pleural effusion, not elsewhere classified Status: Acute Plan: Chest XRAY and Decubitus views show small effusions and i did give lasix 20mg , no symptoms may be related to patient being in bed and receiving IV fluid,can follow up chest xary as out patient - Plan advance diet if stable discharge today
--- NOTE | 2017-12-27 12:21 | P.PNGI ---
Physical Exam Vital signs: Vital Signs 12/26/17 14:20 12/26/17 15:36 12/26/17 16:00 Temperature 98.7 F Pulse Rate 61 Respiratory Rate 18 18 20 Blood Pressure 172/84 H Pulse Oximetry 97 12/26/17 19:00 12/26/17 20:00 12/27/17 00:00 Temperature 97.4 F L 97.8 F Pulse Rate 72 72 Respiratory Rate 18 16 16 Blood Pressure 177/86 H 143/81 H Pulse Oximetry 95 96 12/27/17 08:00 12/27/17 08:25 Temperature 97.1 F L Pulse Rate 69 Respiratory Rate 18 18 Blood Pressure 144/79 H Pulse Oximetry 96 Intake & Output 12/26/17 12/27/17 12/27/17 18:59 06:59 18:59 Intake Total 340 / 340 150 / 150 50 / 50 Output Total 750 / 750 Balance -410 / -410 150 / 150 50 / 50 Weight 103.5 kg Intake: IV 100 / 100 150 / 150 50 / 50 Zosyn 3.375 GM Premix 50 ML @ 100 / 100 150 / 150 50 / 50 100 mls/hr IV.SIG Q6H DIONISIO Rx#: [id number] Oral 240 / 240 Output: Urine 750 / 750 Other: # Voids 3 Date of Last Bowel Movement 12/26/17 - Constitutional no acute distress - Routine HEENT Exam Head: Present: normocephalic Eye: Present: EOMI, PERRL ENT: Present: mucous membranes moist - Routine Cardiovascular Exam Present: RRR, S1, S2 - Routine Abdominal Exam Present: soft - Routine Neurological Exam Present: alert - Detailed Neurological Exam: Coma Scale Eye Opening: Spontaneous - Routine Psychiatric Exam Present: normal affect Results - Labs CBC & Chem 7: 12/27/17 05:37 12/27/17 05:37 Laboratory Results - last 24 hr 12/27/17 12/27/17 05:37 05:37 CBC w Diff Auto diff final WBC 9.2 RBC 4.32 Hgb 11.0 L Hct 34.5 L MCV 79.9 L MCH 25.5 L MCHC 32.0 RDW 15.5 Plt Count 331 MPV 7.8 Neut % (Auto) 67.8 Lymph % (Auto) 20.5 [place] % (Auto) 7.7 Eos % (Auto) 3.3 Baso % (Auto) 0.7 Neut # (Auto) 6.2 Lymph # (Auto) 1.9 [place] # (Auto) 0.7 Eos # (Auto) 0.3 Baso # (Auto) 0.1 WBC Differential . Differential Comment . Sodium 140 Potassium 3.7 Chloride 104 Carbon Dioxide 29.1 Anion Gap 7 BUN 5 L Creatinine 0.69 Estimated GFR Greater than 89 Random Glucose 102 Calcium 8.3 L Total Bilirubin 0.4 AST 37 ALT 49 Alkaline Phosphatase 82 Total Protein 6.9 Albumin 2.9 L - Imaging Impressions Abdomen Ultrasound 12/26/17 00:00 CONCLUSION: 1. Right pleural effusion otherwise unremarkable. Assessment and Plan - Plan Patient is 47-year-old lady with acute diverticulitis, did not respond to oral antibiotic as an outpatient, patient will need a colonoscopy in 4-5 weeks, continue IV antibiotic, ongoing to check stool for C. difficile since she is having significant diarrhea - Attending Attestation recurrent diverticulitis -clinically better abdominal pain better nausea better loose stools improved Recommendations bentyl tid fu office next week probiotics low fiber diet for 4 weeks continue antibiotics for another 7 days colonoscopy in 6-8 weeks if not better return to ed
--- NOTE | 2017-12-27 12:40 | P.DS ---
Date of admission: 12/20/17 19:04 Primary care physician: El Lion Attending physician on discharge: Germán Garcia Anticipated date of discharge: 12/27/17 Brief History from admission: 47-year-old female patient with recent history of diverticulitis diagnosed last week in ER in [facility], has been on Cipro and Flagyl for 6 days, presents to the ER today sent and by GI, Dr. Louis, who she saw this morning in his office because of increased abdominal pains over last 2-3 days despite c/w meds. She has been nauseous, states that now she is having severe 10 out of 10 cramping which worsens with movement talking, and states that she is having watery dark diarrhea for the last day. She denies any recent fevers or other issues. She reports that abd pain is primarily in LLQ and is crampy in nature. No hematemesis. NO CP or SOB. ER eval reveals uncomfortable female c/o abd pain. WBC slightly elevated around 11K. CT scan reveals diverticulitis in the deep central pelvis and mid to distal sigmoid colon without obstruction or definite abscess. Trace free fluid. No free air.Large left-sided hiatal hernia increased in size from 2011 comparison. Associated left basilar atelectasis. She has been started on IVF, IV abx, pain meds. She reports that morphine does dull the pain and make it bearable, but still having pain. DS: Diagnosis - Discharge Diagnosis (1) Diverticulitis Status: Acute (2) GERD (gastroesophageal reflux disease) Status: Chronic (3) Major depression Status: Chronic (4) Anxiety Status: Chronic (5) Migraine Status: Chronic (6) Pleural effusion Status: Acute DS: Summary Hospital Course: Patient admitted with symptoms continued as per H and P ,on IV Zosyn IV fluids and pain medications ,labs reviewed and were stable throughout admission ,GI added bentyl and repeat CT scan abdomen no new changes except for mild pleural effusion ,chest Xray and decubital films show mild pleural effusion ,most likely from all fluid she had been getting and has really not ambulated ,i did give 20mg IV L . Patient already has cipro and flagyl at home to continue for 3 -5 d and she has no symptoms will follow up as out patient chest Xray. She is to follow up with GI 1 week. - Time Spent with Patient Total time spent providing and/or coordinating discharge services: Greater than 30 minutes Exam Vital signs: Vital Signs 12/26/17 14:20 12/26/17 15:36 12/26/17 16:00 Temperature 98.7 F Pulse Rate 61 Respiratory Rate 18 18 20 Blood Pressure 172/84 H Pulse Oximetry 97 12/26/17 19:00 12/26/17 20:00 12/27/17 00:00 Temperature 97.4 F L 97.8 F Pulse Rate 72 72 Respiratory Rate 18 16 16 Blood Pressure 177/86 H 143/81 H Pulse Oximetry 95 96 12/27/17 08:00 12/27/17 08:25 12/27/17 12:00 Temperature 97.1 F L 96.5 F L Pulse Rate 69 71 Respiratory Rate 18 18 18 Blood Pressure 144/79 H 133/79 Pulse Oximetry 96 97 Intake & Output 12/26/17 12/27/17 12/27/17 18:59 06:59 18:59 Intake Total 340 / 340 150 / 150 50 / 50 Output Total 750 / 750 Balance -410 / -410 150 / 150 50 / 50 Weight 103.5 kg Intake: IV 100 / 100 150 / 150 50 / 50 Zosyn 3.375 GM Premix 50 ML @ 100 / 100 150 / 150 50 / 50 100 mls/hr IV.SIG Q6H DIONISIO Rx#: [id number] Oral 240 / 240 Output: Urine 750 / 750 Other: # Voids 3 Date of Last Bowel Movement 12/26/17 Narrative: GENERAL: SKIN: Warm and dry. HEAD: Normocephalic. EYES: No scleral icterus. No injection or drainage. NECK: Supple, trachea midline. No JVD or lymphadenopathy. CARDIOVASCULAR: Regular rate and rhythm without murmurs, gallops, or rubs. RESPIRATORY: Breath sounds equal bilaterally. No accessory muscle use. GASTROINTESTINAL: Abdomen soft, non-tender, nondistended. MUSCULOSKELETAL: No cyanosis, or edema. BACK: Nontender without obvious deformity. No CVA tenderness. Results Procedures completed during hospitalization: CT scan times 2 ,abdominal ultrasound Pending studies at discharge: cxr in 1 week Labs on day of discharge: Labs from last 24 hours 12/27/17 12/27/17 05:37 05:37 CBC w Diff Auto diff final WBC 9.2 RBC 4.32 Hgb 11.0 L Hct 34.5 L MCV 79.9 L MCH 25.5 L MCHC 32.0 RDW 15.5 Plt Count 331 MPV 7.8 Neut % (Auto) 67.8 Lymph % (Auto) 20.5 [place] % (Auto) 7.7 Eos % (Auto) 3.3 Baso % (Auto) 0.7 Neut # (Auto) 6.2 Lymph # (Auto) 1.9 [place] # (Auto) 0.7 Eos # (Auto) 0.3 Baso # (Auto) 0.1 WBC Differential . Differential Comment . Sodium 140 Potassium 3.7 Chloride 104 Carbon Dioxide 29.1 Anion Gap 7 BUN 5 L Creatinine 0.69 Estimated GFR Greater than 89 Random Glucose 102 Calcium 8.3 L Total Bilirubin 0.4 AST 37 ALT 49 Alkaline Phosphatase 82 Total Protein 6.9 Albumin 2.9 L - Impressions ITS Impressions Abdomen/Pelvis CT 12/25/17 00:00 CONCLUSION: 1. Decrease in amount of induration of the fat about the mid sigmoid colon compared to 12/20/2017. No evidence of free fluid. 2. Interval development of bilateral pleural effusions, right greater than left. Abdomen Ultrasound 12/26/17 00:00 CONCLUSION: 1. Right pleural effusion otherwise unremarkable. Chest X-Ray 12/26/17 00:00 CONCLUSION: 1. Large hiatal hernia with persistent left lower lobe airspace consolidation which may reflect atelectasis. Differential considerations include pneumonia and aspiration in the appropriate clinical setting. 2. Small bilateral pleural effusions, right greater than left. Discharge Plan - Discharge Disposition Patient Disposition: 01 Discharge Home - Discharge Condition Condition: Stable - Discharge Order Discharge Orders: Discharge Order (Routine); Ordered 12/27/17 Ordered By: Germán Garcia - Discharge Details Anticipated Discharge Date: 12/20/17 Discharge Comment: to have gi follow up and will get chest xray next week - Physicians Team Primary Care Provider: El Lion Attending Provider: Ronn Ruvalcaba Other Providers: Darrell Jamil MD
== END 2017-12-27 13:15 | disposition home or self-care (01) ==
LOC: PHEDA 10:27 → PHED 10:27 → PH3 18:15 → UNDODISIN 12-21 17:12
PROVIDERS: ADMIT Family Medicine; ATTEND Family Medicine
DX: F32.9 Major depressive disorder, single episode, unspecified; F41.9 Anxiety disorder, unspecified; J90 Pleural effusion, not elsewhere classified; K21.9 Gastro-esophageal reflux disease without esophagitis; K44.9 Diaphragmatic hernia without obstruction or gangrene; J98.11 Atelectasis; K57.32 Diverticulitis of large intestine without perforation or abscess without bleeding; G43.909 Migraine, unspecified, not intractable, without status migrainosus

== ENCOUNTER 2018-04-13 06:24 | Inpatient (IN) ==
[2018-04-13] MEDS ORDERED: Sugammadex Inj 200 MG/2 ML Vial IV.PUSH ONE (07:14)
[2018-04-13] MEDS ORDERED: Sodium Chlor 0.9% Inj 500 ML IV.CONT ONE (07:15)
[2018-04-13] MEDS ORDERED: Metoprolol Tartrate 25 MG Tablet PO ONE (07:15)
[2018-04-13] MEDS ORDERED: Chlorhexidine Gluconate 2% 1 Pack (2 Cloths) TOPICAL ONE (07:15)
[2018-04-13] MEDS ORDERED: Famotidine PF Inj 20 MG/2 ML Vial ONE (07:50)
[2018-04-13] MEDS ORDERED: HYDROmorphone PF Inj 1 MG/ML Ampul ONE (07:50)
[2018-04-13] MEDS ORDERED: ceFAZolin 2 GM Premix Inj 2 GM/50 ML PIGGYBACK IV.SIG SCH (08:00)
--- NOTE | 2018-04-13 09:39 | P.OP ---
- Preoperative Diagnosis (1) Diverticulitis - Postoperative Diagnosis (1) Diverticulitis Date of procedure: 04/13/18 Procedure: Urologic procedures: Cystoscopy and placement of bilateral ureteral catheters Anesthesia: GETA Surgeon: Tanner Christine MD Estimated blood loss (mL): 0 Pathology: none sent Operation and Findings: Urologic procedures indication: Consulted intraoperatively to place bilateral ureteral catheters to aid in visualization of this patient's ureters during her colorectal procedure. Urologic procedures in detail: Concurrent with the colorectal surgeon Dr. Hidalgo, I proceeded with cystoscopy and placement of bilateral ureteral catheters as follows: Initially cystoscopic evaluation was performed utilizing the rigid cystoscope with the 30 degree lens and the 22 Telugu sheath. Both right and left ureteral orifices were in correct anatomic position draining clear yellow urine. There were no bladder mucosal lesions, calculi or diverticula formation. There was no evidence of fistula formation or bladder tumor formation. I then proceeded to pass a sensor 0.035 wire up the patient's left ureter until a small amount of resistance was met. A 6 Telugu open-ended ureteral catheter was then advanced over the wire 25 cm in a cephalad direction. With the catheter in place the guidewire was withdrawn and reintroduced through secondary site by the cystoscope. In similar fashion the contralateral side was accomplished. With both catheters in place the cystoscope and guidewire were withdrawn. A 16 Telugu 10 cc Lee catheter was then placed. Both ureteral catheters were then anchored to the Lee via a connector. All 3 catheters were placed to gravity drainage. This completes the urologic surgery portion of combined procedures on this patient.
[2018-04-13] MEDS ORDERED: Potassium Chlor 20 mEq Premix 20 MEQ/100 ML PIGGYBACK IV.SIG ONE (12:13)
[2018-04-13] MEDS ORDERED: Morphine Inj 30 MG/30 ML PCA.VIAL PCA PRN ×2 (12:16→21:48)
[2018-04-13] MEDS ORDERED: Naloxone Inj 0.4 MG/ML Vial IV.PUSH PRN (12:16)
[2018-04-13] MEDS ORDERED: fentaNYL Citrate Inj 100 MCG/2 ML Ampul ONE ×2 (12:33)
[2018-04-13] MEDS ORDERED: *morphine SULFATE 4 MG/ML PERIprocedure ONLY ONE (12:38)
[2018-04-13] MEDS ORDERED: *Meperidine Inj 25 MG/ML Vial PERIprocedural Use ONLY ONE (12:39)
[2018-04-13] MEDS ORDERED: *morphine SULFATE 10 MG/ML PERIprocedure ONLY ONE (13:07)
--- NOTE | 2018-04-13 13:15 | MP ---
cc: Georgiana Hidalgo MD, Mario C MD DATE OF OPERATION: 04/13/2018 PREOPERATIVE DIAGNOSIS: Diverticulitis. POSTOPERATIVE DIAGNOSES: 1. Diverticulitis. 2. Adhesions. PROCEDURE: 1. Robotic sigmoid resection. 2. Robotic extensive lysis of adhesions. SURGEON: Georgiana Hidalgo MD DOORS PREFITTER: Maurisio ANESTHESIA: General per ET tube. ESTIMATED BLOOD LOSS: Less than 100 mL. OPERATIVE INDICATIONS: The patient is a 47-year-old female with a history of multiple severe attacks of diverticulitis. OPERATIVE FINDINGS: Inflamed sigmoid with adhesions from the sigmoid to the left pelvic sidewall as well as folded over onto itself. OPERATIVE COURSE: The patient was brought to the operating room and placed in a supine position. After induction of general anesthesia, the patient was placed in Jerry stirrups and all bony prominences were carefully padded. The skin of the anterior abdominal wall as well as the perineal area was then prepped and draped in the usual sterile fashion. Dr. Christine then came in and performed cystoscopy and placement of bilateral ureteral catheters, please see his operative note for details. Site was then chosen for the camera being located just to the right and above the umbilicus. A 10/12 trocar was placed at this location under direct vision using the laparoscope. CO2 insufflation was undertaken and a brief abdominal survey was then performed with nothing noted that would preclude the operative approach. She was noted to have a very redundant sigmoid, which a large part was folded over and stuck down into the pelvis. Her right ovary was present, but appeared normal and her liver was visibly normal as well. The remainder of the ports were placed as follows: The #1, which was a 10/12 port, was placed just inside the right anterior superior iliac spine. The #5 assist port was placed just under the right costal margin equidistant from the #1 and the camera port. The patient was positioned with the head down and just slightly to the right. The small bowel was brought up and out of the pelvis and the right ovary was flipped over into the right lower quadrant to get it out of the way. This allowed good visibility and I did not feel we would most likely have to take down the splenic flexure. The #3 port was placed on the umbilical line in the left anterior axillary line and the #2 port was placed 2 cm above the umbilical line in the left midclavicular line. The robot was then docked. The sigmoid colon was retracted down and to the left and the peritoneum was scored on the right. Dissection continued in this plane until the left and right ureters were both visualized. We did have to do lateral dissection to dissect free the adhesions of the sigmoid colon to the left lateral sidewall in order to get full visibility and release of the ureter. Eventually, we did have this and the vessels were dissected free circumferentially. A white load of the Morrice Endo Stapler was placed across the vessels. This was closed up, second fired and removed with a small amount of bleeding on the staple line that was controlled with electrocautery. Dissection then continued in the posterior plane, freeing the mesorectum from the posterior peritoneum all the way down to the level of the distal rectum. Dissection then continued around the right and left side meeting her previous dissection, freeing further adhesions from the pelvic sidewall. Eventually, we were able to dissect around and straighten out the colon. A sponge stick was then placed in the colon a site was chosen for division of the colon on the proximal rectum. The mesentery at this level was divided using the Harmonic scalpel. The 32 EEA stapler was then advanced up to the proposed staple line and it came up nicely without tension. A blue load of the Morrice Endo Stapler was placed across the bowel at this level, fired and removed. The stapler was again advanced up to the rectal stump and laid nicely in a nice orientation. At this point, all dissection beds were examined and hemostasis was obtained with electrocautery. Further attachments of the descending colon to the left lateral sidewall were then also dissected free using electrocautery to allow greater length. At this point, a measurement was taken, and I felt that I had adequate length to perform a tension-free anastomosis and the robot was undocked. A 10-12 cm transverse incision was made in the suprapubic area along the line of her previous abdominoplasty incision. Using electrocautery, dissection was carried down to the fascia of the anterior abdominal wall which was split. The medial fibers of the rectus abdominis muscle were divided and the remainder of the muscle fibers were spread apart. The posterior fascia/peritoneum was then divided along the length of the skin incision. The wound protector was then placed and the proximal stapled end of the bowel was grasped and pulled up and out through the incision. A site was chosen for proximal division of the bowel where the bowel was healthy and soft and came down nicely to the pubic tubercle. The mesentery of the slip was serially divided and ligated using 0 Vicryl ties and a pursestring stapling device was placed across the bowel at this level. The distal bowel was occluded with a Oscar clamp and the bowel was amputated and taken to a back table where it was later opened and nothing other than diverticulosis was noted. The anvil from the 33 EEA stapler was then placed into the cut end of the bowel and the previously placed pursestring suture was then secured and the anvil was reduced back into the peritoneal cavity. The stapler was again advanced through the anus and up to the rectal stump without difficulty. The spike was advanced just at the staple line. The anvil was with the spike being careful that the stapler was not twisted. This was closed, held for 30 seconds, fired and removed. Both anastomotic rings appeared to be complete and the anastomosis appeared pink and healthy circumferentially without tension. A small amount of warm normal saline was placed into the pelvis. Digital pressure was held proximally while air was inflated into the rectum until gentle tension was noted on the anastomosis without any leakage noted. Again, the anastomosis was checked and laid in a nice orientation. The posterior aspect of the wound was then closed in a running fashion with #1 PDS and the anterior fascia of the wound was closed in a running fashion using #1 PDS. The wound was copiously irrigated with warm normal saline and the skin was closed in a running subcuticular fashion using 3-0 Vicryl. A Tegaderm was placed over the wound and CO2 insufflation was resumed. A brief abdominal survey was then performed and confirmed the bowel was without tension and in a nice orientation. The powder Surgicel was then dusted in the pelvis over all of the dissection areas to decrease the risk of bleeding. The fascia at the trocar sites of the right lower quadrant and the umbilical port were then closed using the CrossBow device and 0 Vicryl sutures. These were placed and held, but not tied until the CO2 insufflation was removed. CO2 insufflation was then removed to the extent possible and the previously placed fascial sutures were then secured. The wounds were copiously irrigated with warm normal saline and closed in an interrupted subcuticular fashion using 3-0 Vicryl. The right lower quadrant stent was then removed. All sponge, needle and instrument counts were correct and the patient was returned to the postanesthesia care unit in stable condition. MD JAZ Rodrigez/raoul , 12:22 PM , 12:36 PM
[2018-04-13] MEDS ORDERED: *HYDROmorphone PF Inj 1 MG/ML Ampul PERIprocedural Use ONLY ONE (13:29)
[2018-04-13] MEDS: Dextrose 5%/NaCl 0.9% Inj 1,000 ML IV.CONT SCH ×2 (13:35→22:33)
[2018-04-13 13:50] LABS: Baso % (Auto) 0.2 % (0.0-2.0); Hematocrit 38.7 % (35.0-46.0); Hemoglobin 12.8 gm/dL (11.6-15.3); Lymph # (Auto) 0.7 th/mm3 (1.0-4.8); Lymph % (Auto) 3.7 % (9.0-44.0); Mean Corpuscular Hemoglobin 27.4 pg (27.0-34.0); Mean Corpuscular Volume 82.9 fL (80.0-100.0); Mean Platelet Volume 7.8 fL (7.0-11.0); Mono # (Auto) 0.3 th/mm3 (0.0-0.9); Mono % (Auto) 1.5 % (0.0-8.0); Neut # (Auto) 17.9 th/mm3 (1.8-7.7); Neut % (Auto) 94.6 % (16.0-70.0); Platelet Count 279 th/mm3 (150-450); Red Blood Count 4.67 mil/mm3 (4.00-5.30); Red Cell Distribution Width 16.3 % (11.6-17.2)
[2018-04-13] MEDS: Potassium Chlor 20 mEq Premix 20 MEQ/100 ML PIGGYBACK IV.SIG SCH (17:15)
[2018-04-13] MEDS: Dextrose 5%/NaCl 0.9% Inj 1,000 ML IV.SIG SCH ×2 (17:16→22:27)
[2018-04-13] MEDS ORDERED: Metoprolol Tartrate 50 MG Tablet PO SCH (21:45)
[2018-04-13] MEDS ORDERED: Metoprolol Tartrate 25 MG Tablet PO SCH (21:45)
[2018-04-13] MEDS ORDERED: Ketorolac Inj 30 MG/ML (IVP) Vial IV.PUSH SCH (22:00)
[2018-04-13] MEDS: Heparin - SQ 10,000 UNITS/ML Vial SQ SCH (22:30)
[2018-04-13] MEDS: Famotidine PF Inj 20 MG/2 ML Vial IV.PUSH SCH (22:31)
[2018-04-14] MEDS: ceFAZolin 1 GM Premix Inj 1 GM/50 ML FROZ.PIGGY IV.SIG SCH ×2 (00:48→09:28)
[2018-04-14 05:06] LABS: Baso % (Auto) 0.2 % (0.0-2.0); Hematocrit 35.7 % (35.0-46.0); Hemoglobin 12.1 gm/dL (11.6-15.3); Lymph # (Auto) 1.5 th/mm3 (1.0-4.8); Lymph % (Auto) 11.4 % (9.0-44.0); Mean Corpuscular HGB Conc 33.9 % (32.0-36.0); Mean Corpuscular Hemoglobin 27.5 pg (27.0-34.0); Mean Corpuscular Volume 80.9 fL (80.0-100.0); Mean Platelet Volume 8.4 fL (7.0-11.0); Mono # (Auto) 1.1 th/mm3 (0.0-0.9); Mono % (Auto) 8.5 % (0.0-8.0); Neut # (Auto) 10.4 th/mm3 (1.8-7.7); Neut % (Auto) 79.9 % (16.0-70.0); Platelet Count 257 th/mm3 (150-450); Red Blood Count 4.41 mil/mm3 (4.00-5.30); Red Cell Distribution Width 15.8 % (11.6-17.2); White Blood Count 13.1 th/mm3 (4.0-11.0)
[2018-04-14 05:36] LABS: Calcium 8.1 mg/dL (8.5-10.1); Carbon Dioxide 22.4 meq/L (21.0-32.0); Potassium 4.2 meq/L (3.5-5.1)
[2018-04-14] MEDS: Ketorolac Inj 30 MG/ML (IVP) Vial IV.PUSH SCH ×4 (05:41→23:42)
[2018-04-14] MEDS: Dextrose 5%/NaCl 0.9% Inj 1,000 ML IV.CONT SCH ×2 (05:46→11:29)
[2018-04-14] MEDS: Dextrose 5%/NaCl 0.9% Inj 1,000 ML IV.SIG SCH ×2 (09:32→18:22)
[2018-04-14] MEDS: Heparin - SQ 10,000 UNITS/ML Vial SQ SCH ×2 (09:33→20:15)
[2018-04-14] MEDS: Famotidine PF Inj 20 MG/2 ML Vial IV.PUSH SCH ×2 (09:33→20:15)
[2018-04-14] MEDS: Metoprolol Tartrate 25 MG Tablet PO SCH ×2 (09:33→20:15)
[2018-04-14] MEDS ORDERED: Metoprolol Tartrate 50 MG Tablet PO SCH (12:12)
--- NOTE | 2018-04-14 12:16 | P.PNCS ---
Subjective Colorectal Surgery Post Op Day #: 1 Interval history: s/p robotic sigmoid resection reports burning incisional pain, not controlled by morphine no nausea Objective Result Diagrams: 04/14/18 04:34 04/14/18 04:34 Objective Remarks: Alert, awake moderately uncomfortable Abdomen soft, nondistended, tender Dressings c/d/i Assessment and Plan - Assessment (1) Diverticulitis Code(s): K57.92 - Diverticulitis of intestine, part unspecified, without perforation or abscess without bleeding Status: Acute - Plan Advance diet Remove stent/hernández Change to Oral pain pills Mobilize Decrease IVF Transfer to floor
[2018-04-14] MEDS: Venlafaxine XR 75 MG Capsule PO SCH (16:05)
[2018-04-14] MEDS: ALPRAZolam 0.25 MG Tablet PO PRN (16:06)
[2018-04-15] MEDS: Dextrose 5%/NaCl 0.9% Inj 1,000 ML IV.SIG SCH ×4 (06:25→22:31)
[2018-04-15] MEDS: Dextrose 5%/NaCl 0.9% Inj 1,000 ML IV.CONT SCH (06:37)
[2018-04-15 09:49] LABS: Baso # (Auto) 0.1 th/mm3 (0.0-0.2); Baso % (Auto) 0.9 % (0.0-2.0); Eos # (Auto) 0.2 th/mm3 (0.0-0.4); Eos % (Auto) 3.4 % (0.0-4.0); Hematocrit 32.1 % (35.0-46.0); Hemoglobin 10.7 gm/dL (11.6-15.3); Lymph # (Auto) 2.1 th/mm3 (1.0-4.8); Lymph % (Auto) 34.6 % (9.0-44.0); Mean Corpuscular HGB Conc 33.4 % (32.0-36.0); Mean Corpuscular Hemoglobin 27.6 pg (27.0-34.0); Mean Corpuscular Volume 82.7 fL (80.0-100.0); Mean Platelet Volume 8.1 fL (7.0-11.0); Mono # (Auto) 0.6 th/mm3 (0.0-0.9); Mono % (Auto) 9.8 % (0.0-8.0); Neut % (Auto) 51.3 % (16.0-70.0); Platelet Count 203 th/mm3 (150-450); Red Blood Count 3.88 mil/mm3 (4.00-5.30); White Blood Count 5.9 th/mm3 (4.0-11.0)
[2018-04-15] MEDS: Ketorolac Inj 30 MG/ML (IVP) Vial IV.PUSH SCH ×3 (10:13→18:47)
[2018-04-15] MEDS: Metoprolol Tartrate 25 MG Tablet PO SCH ×2 (10:16→21:24)
[2018-04-15 10:17] LABS: Carbon Dioxide 24.5 meq/L (21.0-32.0); Potassium 3.3 meq/L (3.5-5.1)
[2018-04-15] MEDS: Famotidine PF Inj 20 MG/2 ML Vial IV.PUSH SCH ×2 (10:17→21:24)
[2018-04-15] MEDS: Heparin - SQ 10,000 UNITS/ML Vial SQ SCH ×2 (10:17→21:24)
[2018-04-15] MEDS: ALPRAZolam 0.25 MG Tablet PO PRN (10:17)
[2018-04-15] MEDS: Venlafaxine XR 75 MG Capsule PO SCH (10:18)
--- NOTE | 2018-04-15 12:24 | P.PNCS ---
Subjective Colorectal Surgery Post Op Day #: 2 Interval history: s/p robotic sigmoid resection still reports pain liquid stool with difficulty with control Objective Result Diagrams: 04/15/18 09:02 04/15/18 09:02 Objective Remarks: Alert, awake moderately uncomfortable Abdomen soft, nondistended, tender Dressings c/d/i Assessment and Plan - Assessment (1) Diverticulitis Code(s): K57.92 - Diverticulitis of intestine, part unspecified, without perforation or abscess without bleeding Status: Acute - Plan Advance diet HL IV Home soon
[2018-04-16] MEDS: Ketorolac Inj 30 MG/ML (IVP) Vial IV.PUSH SCH ×3 (00:15→11:19)
[2018-04-16] MEDS: Dextrose 5%/NaCl 0.9% Inj 1,000 ML IV.SIG SCH ×2 (07:05→14:18)
[2018-04-16] MEDS: Famotidine PF Inj 20 MG/2 ML Vial IV.PUSH SCH (08:15)
[2018-04-16] MEDS: Heparin - SQ 10,000 UNITS/ML Vial SQ SCH (08:15)
[2018-04-16] MEDS: Venlafaxine XR 75 MG Capsule PO SCH (08:16)
[2018-04-16] MEDS: Metoprolol Tartrate 25 MG Tablet PO SCH (08:17)
--- NOTE | 2018-04-16 15:24 | P.PNCS ---
Subjective Colorectal Surgery Post Op Day #: 3 Interval history: s/p robotic sigmoid resection more comfortable multiple loose stools with difficulty with control Objective Result Diagrams: 04/15/18 09:02 04/15/18 09:02 Objective Remarks: comfortable Abdomen soft, nondistended, tender wounds clean Assessment and Plan - Assessment (1) Diverticulitis Code(s): K57.92 - Diverticulitis of intestine, part unspecified, without perforation or abscess without bleeding Status: Acute - Plan Doing well c. diff toxin negative Home today Followup with me 3 weeks
--- NOTE | 2018-04-16 16:50 | MD ---
cc: Georgiana Hidalgo MD DATE OF DISCHARGE: ADMISSION DIAGNOSIS: Diverticulitis. DISCHARGE DIAGNOSIS: Diverticulitis. PROCEDURES: 1. Cystoscopy with placement of bilateral ureteral catheters. 2. Robotic sigmoid resection. 3. Robotic extensive lysis of adhesions. HOSPITAL COURSE: The patient is a 47-year-old female with a history of severe diverticulitis. She was admitted to the hospital on 04/13/2018 after an outpatient bowel prep, where she underwent the above-named procedure. Postoperatively, she did well with rapid return of bowel and bladder function. She did have some diarrhea, but C. difficile toxin was checked and it was negative. She was discharged to home on April 16, 2018 with instructions and followup with myself in the office. Final pathology was not available at the time of discharge. Georgiana Hidalgo MD [email or web address] , 03:25 PM , 03:29 PM
== END 2018-04-16 16:49 | disposition home or self-care (01) ==
LOC: HSDI 06:24 → HCPC 17:18 → N07 04-14 18:16
PROVIDERS: ADMIT Colon & Rectal Surgery; ATTEND Colon & Rectal Surgery